=== PATIENT | female | born 1930 | race African-American/Black ===

== ENCOUNTER 2019-11-14 23:25 | Inpatient (IN) | payer MEDICARE, MEDICAID ==
[~2019-11-14] VITALS: Ht 157.5 cm; Wt 49.9 kg
[~2019-11-14 23:25] MED LIST: AMLO5TAB4 PO; ASCO-339 MT; CHOL100044 MT; FERR325T6 MT
[2019-11-14] MEDS ORDERED: SODIUM CHLORIDE 0.9% 1,000 ML IV ONE (23:50)
[2019-11-14] MEDS ORDERED: ONDANSETRON HCL 4MG/2ML INJ IV STA (23:50)
[2019-11-15 01:00] LABS: EOSINOPHILS % 0.4 % (0.0-5.0); HEMATOCRIT. 34.9 % (36.0-48.0); HEMOGLOBIN. 11.4 g/dL (12.0-16.0); LYMPHOCYTES % 15.4 % (20.0-50.0); MEAN CORPUSCULAR HEMOGLOBIN 26.5 pg (28.0-32.0); MEAN CORPUSCULAR VOLUME 81.4 fL (81.0-99.0); MEAN PLATELET VOLUME 8.9 fl (7.4-10.4); NEUTROPHILS % 76.2 % (40.0-76.0); PLATELET 213 x1000/uL (130-400); RED BLOOD CELL COUNT 4.29 mill/uL (4.2-5.4); RED CELL DISTRIBUTION WIDTH 14.5 % (11.6-14.6)
[2019-11-15 01:07] LABS: CHLORIDE 105 mEq/L (98-107)
[2019-11-15 01:09] LABS: CLARITY URINE CLOUDY (CLEAR); COLOR URINE YELLOW (YELLOW); KETONES URINE TRACE (NEGATIVE); LEUKOCYTE ESTERASE URINE NEGATIVE (NEGATIVE); NITRITE URINE NEGATIVE (NEGATIVE); OCCULT BLOOD URINE NEGATIVE (NEGATIVE); PH URINE 5.5 (4.5-8.0); PROTEIN URINE 2+ (NEGATIVE); SPECIFIC GRAVITY URINE 1.017 (1.005-1.030); UROBILINOGEN URINE 0.2 E.U./dL (0.2-1.0)
[2019-11-15] MEDS ORDERED: SITA100T11 PO (01:17)
[2019-11-15] MEDS ORDERED: FOLI-43 PO (01:17)
[2019-11-15] MEDS ORDERED: CETI10TA10 MT (01:17)
[2019-11-15] MEDS ORDERED: CHOL100034 PO (01:17)
[2019-11-15] MEDS ORDERED: DOCU-272 PO (01:17)
[2019-11-15] MEDS ORDERED: [UNRECOGNIZED DRUG - CODE] EP (01:17)
[2019-11-15] MEDS ORDERED: METF500S7 PO (01:17)
[2019-11-15] MEDS ORDERED: METO25TA6 PO (01:17)
[2019-11-15] MEDS ORDERED: CEPH-569 PO (01:17)
[2019-11-15 01:49] LABS: BG BASE EXCESS -2.1 mmol/L (-2.0-2.0); BG CARBOXYHEMOGLOBIN 0.3 % (0.5-1.5); BG DEOXYHEMOGLOBIN 5.6 % (0.0-5.0); BG FRACTION INSPIRED OXYGEN 21; BG HCO3 ACT 21.7 mmol/L (22.0-26.0); BG METHEMOGLOBIN 0.1 % (0.0-1.5); BG OXYGEN SATURATION 94.4 % (92.0-98.5); BG PCO2 33.9 mmHg (35.0-45.0); BG PH 7.424 (7.350-7.450); BG PO2 78.5 mmHg (75.0-100.0); BG SAMPLE SITE RIGHT RADIAL; BG TOTAL HEMOGLOBIN 11.4 g/dL (12.0-18.0); BG VENT MODE ROOM AIR
[2019-11-15 23:40] VITALS: BP 153/82
[2019-11-16] MEDS ORDERED: ACETAMINOPHEN 325MG TABLET PO PRN (02:00)
[2019-11-16] MEDS ORDERED: DEXTROSE 50% WATER 50ML SYRINGE IV PRN (02:00)
[2019-11-16] MEDS ORDERED: ONDANSETRON HCL 4MG/2ML INJ IV PRN (02:00)
[2019-11-16 04:24] VITALS: BP 160/88
[2019-11-16] MEDS: BLOOD SUGAR DIAGNOSTIC STRIP TEST SCH ×4 (06:31→21:00)
[2019-11-16] MEDS: INSULIN LISPRO 100 UNITS/ML SUBCUT SCH ×4 (07:40→22:07)
[2019-11-16 07:58] LABS: BASOPHILS % 0.8 % (0.0-2.0); EOSINOPHILS % 1.5 % (0.0-5.0); HEMATOCRIT. 34.4 % (36.0-48.0); HEMOGLOBIN. 11.5 g/dL (12.0-16.0); LYMPHOCYTES % 29.2 % (20.0-50.0); MEAN CORPUSCULAR HEMOGLOBIN 27.2 pg (28.0-32.0); MEAN CORPUSCULAR VOLUME 81.4 fL (81.0-99.0); MONOCYTES % 7.4 % (2.0-8.0); NEUTROPHILS % 61.1 % (40.0-76.0); RED BLOOD CELL COUNT 4.23 mill/uL (4.2-5.4); RED CELL DISTRIBUTION WIDTH 14.4 % (11.6-14.6)
[2019-11-16 08:00] VITALS: BP 164/82
[2019-11-16] MEDS: ENOXAPARIN 40MG/0.4ML SYR SUBCUT SCH (08:13)
[2019-11-16 08:30] LABS: CHLORIDE 111 mEq/L (98-107)
[2019-11-16 12:00] VITALS: BP 140/72
[2019-11-16] MEDS ORDERED: PNEUMOCOCCAL 23-VAL P-SAC VAC 0.5 ML IM ONE (12:00)
[2019-11-16] MEDS ORDERED: INFLUENZA VIRUS VACCINE(AFLURIA) 0.5ML SYR IM ONE (12:00)
[2019-11-16] MEDS: CEFTRIAXONE 1 G PREMIX 50 ML IV SCH (12:58)
[2019-11-16] MEDS ORDERED: MAGNESIUM OXIDE 400MG TABLET PO NR (14:15)
[2019-11-16] MEDS: SODIUM CHLORIDE 0.9% 1,000 ML IV SCH (15:51)
[2019-11-16 16:23] VITALS: BP 132/78
[2019-11-16] MEDS ORDERED: CLON-457 MT (18:27)
[2019-11-16] MEDS ORDERED: CETI10CA11 MT (18:27)
[2019-11-16] MEDS ORDERED: FERR-71 MT (18:27)
[2019-11-16] MEDS ORDERED: LINA145C MT (18:27)
[2019-11-16] MEDS ORDERED: CEPH500T MT (18:27)
[2019-11-16] MEDS ORDERED: AMLO5TAB88 MT (18:27)
[2019-11-16] MEDS ORDERED: METF500T MT (18:27)
[2019-11-16] MEDS ORDERED: SITA100T11 MT (18:27)
[2019-11-16] MEDS ORDERED: FOLI-43 MT (18:27)
[2019-11-16] MEDS ORDERED: CHOL400D16 PO (18:27)
[2019-11-16] MEDS ORDERED: ACET12.5 PO (18:27)
[2019-11-16] MEDS ORDERED: METO25TA6 MT (18:27)
[2019-11-16] MEDS ORDERED: DOCU-272 MT (18:27)
[2019-11-16] MEDS ORDERED: MEGE400O5 PO (18:27)
[2019-11-16] MEDS: VANCOMYCIN 1 G PREMIX 200 ML IV SCH (18:34)
[2019-11-16 20:03] LABS: T4 FREE 1.41 ng/dL (0.76-1.46)
[2019-11-16 20:18] VITALS: BP 114/75
[2019-11-16 20:31] LABS: FOLIC ACID (FOLATE) SERUM > 20.00 ng/mL (>5.38)
[2019-11-16 20:34] LABS: VITAMIN B12 SERUM 1522 pg/mL (211-911)
[2019-11-17 00:30] VITALS: BP 116/77
[2019-11-17 04:00] VITALS: BP 152/94
[2019-11-17] MEDS: BLOOD SUGAR DIAGNOSTIC STRIP TEST SCH ×4 (07:20→21:22)
[2019-11-17 08:00] VITALS: BP 132/85
[2019-11-17] MEDS: ENOXAPARIN 40MG/0.4ML SYR SUBCUT SCH (08:58)
[2019-11-17] MEDS: INSULIN LISPRO 100 UNITS/ML SUBCUT SCH ×4 (09:04→21:31)
[2019-11-17 12:00] VITALS: BP 145/90
[2019-11-17] MEDS: CEFTRIAXONE 1 G PREMIX 50 ML IV SCH (12:35)
[2019-11-17 16:00] VITALS: BP 140/75
[2019-11-17] MEDS: VANCOMYCIN 1 G PREMIX 200 ML IV SCH (17:53)
[2019-11-17] MEDS: SODIUM CHLORIDE 0.9% 1,000 ML IV SCH (18:05)
[2019-11-17 20:00] VITALS: BP 149/56
[2019-11-18 04:00] VITALS: BP 121/67
[2019-11-18] MEDS: BLOOD SUGAR DIAGNOSTIC STRIP TEST SCH ×4 (07:20→20:47)
[2019-11-18] MEDS: INSULIN LISPRO 100 UNITS/ML SUBCUT SCH ×4 (07:50→20:47)
[2019-11-18 08:00] VITALS: BP 134/73
[2019-11-18] MEDS: ENOXAPARIN 30MG/0.3ML SYR SUBCUT SCH (09:09)
[2019-11-18] MEDS: MULTIVITAMINS,THER W-MINERALS TABLET PO SCH (09:09)
[2019-11-18] MEDS: ZINC SULFATE 220 MG ( 50 ) CAPSULE PO SCH (09:11)
[2019-11-18 12:00] VITALS: BP 114/62
[2019-11-18] MEDS: CEFTRIAXONE 1 G PREMIX 50 ML IV SCH (12:26)
[2019-11-18] MEDS: SODIUM CHLORIDE 0.9% 1,000 ML IV SCH (14:27)
[2019-11-18 16:00] VITALS: BP 119/52
[2019-11-18] MEDS: VANCOMYCIN 1 G PREMIX 200 ML IV SCH (17:12)
[2019-11-18] MEDS: LOSARTAN POTASSIUM 25 MG TABLET PO SCH (18:30)
[2019-11-18 20:00] VITALS: BP 145/48
[2019-11-18] MEDS: CARVEDILOL 6.25 MG TABLET PO SCH (21:25)
[2019-11-19] VITALS: BP 126/45
[2019-11-19 04:00] VITALS: BP 159/57
[2019-11-19] MEDS: SODIUM CHLORIDE 0.9% 1,000 ML IV SCH ×2 (05:00→10:25)
[2019-11-19] MEDS: INSULIN LISPRO 100 UNITS/ML SUBCUT SCH ×4 (06:56→22:20)
[2019-11-19] MEDS: BLOOD SUGAR DIAGNOSTIC STRIP TEST SCH ×4 (06:56→21:00)
[2019-11-19 08:00] VITALS: BP 162/85
[2019-11-19] MEDS: CARVEDILOL 6.25 MG TABLET PO SCH ×2 (09:12→22:19)
[2019-11-19] MEDS: MULTIVITAMINS,THER W-MINERALS TABLET PO SCH (09:12)
[2019-11-19] MEDS: ZINC SULFATE 220 MG ( 50 ) CAPSULE PO SCH (09:12)
[2019-11-19] MEDS: ENOXAPARIN 30MG/0.3ML SYR SUBCUT SCH (09:13)
[2019-11-19] MEDS: LOSARTAN POTASSIUM 25 MG TABLET PO SCH (09:13)
[2019-11-19 12:00] VITALS: BP 159/80
[2019-11-19] MEDS: CEFTRIAXONE 1 G PREMIX 50 ML IV SCH (12:27)
[2019-11-19 16:00] VITALS: BP 160/81
[2019-11-19] MEDS: CLONIDINE 0.1MG TABLET PO PRN (18:42)
[2019-11-19 20:00] VITALS: BP 157/77
[2019-11-20] VITALS: BP 126/78
[2019-11-20] MEDS: SODIUM CHLORIDE 0.9% 1,000 ML IV SCH ×3 (00:35→18:08)
[2019-11-20 04:00] VITALS: BP 145/81
[2019-11-20] MEDS: BLOOD SUGAR DIAGNOSTIC STRIP TEST SCH ×4 (07:16→21:00)
[2019-11-20] MEDS: INSULIN LISPRO 100 UNITS/ML SUBCUT SCH ×4 (07:50→23:56)
[2019-11-20 08:00] VITALS: BP 148/93
[2019-11-20] MEDS: LOSARTAN POTASSIUM 50 MG TABLET PO SCH (08:25)
[2019-11-20] MEDS: ZINC SULFATE 220 MG ( 50 ) CAPSULE PO SCH (08:25)
[2019-11-20] MEDS: MULTIVITAMINS,THER W-MINERALS TABLET PO SCH (08:25)
[2019-11-20] MEDS: CARVEDILOL 6.25 MG TABLET PO SCH ×2 (08:26→23:49)
[2019-11-20] MEDS: ENOXAPARIN 30MG/0.3ML SYR SUBCUT SCH (08:27)
[2019-11-20 08:40] LABS: BASOPHILS % 0.5 % (0.0-2.0); EOSINOPHILS % 2.9 % (0.0-5.0); HEMOGLOBIN. 10.6 g/dL (12.0-16.0); LYMPHOCYTES % 26.1 % (20.0-50.0); MEAN CORPUSCULAR VOLUME 81.6 fL (81.0-99.0); MEAN PLATELET VOLUME 9.5 fl (7.4-10.4); MONOCYTES % 7.5 % (2.0-8.0); PLATELET 218 x1000/uL (130-400); RED BLOOD CELL COUNT 3.92 mill/uL (4.2-5.4); RED CELL DISTRIBUTION WIDTH 14.7 % (11.6-14.6)
[2019-11-20 08:46] LABS: CHLORIDE 112 mEq/L (98-107)
[2019-11-20] MEDS: CEFTRIAXONE 1 G PREMIX 50 ML IV SCH (11:56)
[2019-11-20 12:00] VITALS: BP 132/57
[2019-11-20 16:00] VITALS: BP 145/80
[2019-11-20 20:00] VITALS: BP 169/88
[2019-11-21] VITALS: BP 163/86
[2019-11-21 04:00] VITALS: BP 184/69
[2019-11-21] MEDS: CLONIDINE 0.1MG TABLET PO PRN ×2 (04:52→22:30)
[2019-11-21] MEDS: SODIUM CHLORIDE 0.9% 1,000 ML IV SCH ×2 (04:57→15:45)
[2019-11-21] MEDS: BLOOD SUGAR DIAGNOSTIC STRIP TEST SCH ×4 (07:20→21:00)
[2019-11-21] MEDS: INSULIN LISPRO 100 UNITS/ML SUBCUT SCH ×4 (07:50→22:32)
[2019-11-21 08:00] VITALS: BP 169/92
[2019-11-21] MEDS: MULTIVITAMINS,THER W-MINERALS TABLET PO SCH (08:46)
[2019-11-21] MEDS: ENOXAPARIN 30MG/0.3ML SYR SUBCUT SCH (08:46)
[2019-11-21] MEDS: CARVEDILOL 6.25 MG TABLET PO SCH ×2 (08:46→22:29)
[2019-11-21] MEDS: ZINC SULFATE 220 MG ( 50 ) CAPSULE PO SCH (08:46)
[2019-11-21] MEDS: LOSARTAN POTASSIUM 50 MG TABLET PO SCH (08:46)
[2019-11-21] MEDS: CEFTRIAXONE 1 G PREMIX 50 ML IV SCH (11:01)
[2019-11-21 12:00] VITALS: BP 154/77
[2019-11-21 16:00] VITALS: BP 181/92
[2019-11-22] VITALS: BP 152/79
[2019-11-22 04:00] VITALS: BP 143/80
[2019-11-22] MEDS: SODIUM CHLORIDE 0.9% 1,000 ML IV SCH ×2 (05:20→18:25)
[2019-11-22] MEDS: BLOOD SUGAR DIAGNOSTIC STRIP TEST SCH ×3 (05:45→17:34)
[2019-11-22] MEDS: INSULIN LISPRO 100 UNITS/ML SUBCUT SCH ×3 (07:50→17:35)
[2019-11-22 08:00] VITALS: BP 163/87
[2019-11-22] MEDS: CARVEDILOL 6.25 MG TABLET PO SCH ×2 (08:38→20:44)
[2019-11-22] MEDS: LOSARTAN POTASSIUM 50 MG TABLET PO SCH (08:38)
[2019-11-22] MEDS: ENOXAPARIN 30MG/0.3ML SYR SUBCUT SCH (08:38)
[2019-11-22] MEDS: CLONIDINE 0.1MG TABLET PO PRN ×2 (08:38→20:43)
[2019-11-22] MEDS: ZINC SULFATE 220 MG ( 50 ) CAPSULE PO SCH (08:38)
[2019-11-22] MEDS: MULTIVITAMINS,THER W-MINERALS TABLET PO SCH (08:38)
[2019-11-22] MEDS: CEFTRIAXONE 1 G PREMIX 50 ML IV SCH (11:50)
[2019-11-22 12:00] VITALS: BP 138/74
[2019-11-22] MEDS ORDERED: COR6 PO (14:52)
[2019-11-22] MEDS ORDERED: LOSA50TA3 PO (14:52)
[2019-11-22 15:16] VITALS: BP 138/74
[2019-11-22 16:00] VITALS: BP 132/87
== END 2019-11-22 20:56 | disposition home or self-care (01) | DRG 52 ==
LOC: ER 23:25 → 6WST 11-15 03:00 → EDBEDREQDT 11-15 03:09 → EDBEDREQ 11-15 03:09 → EDBEDREQTM 11-15 03:09 → ENRESERV 11-15 22:48
PROVIDERS: ADMIT Internal Medicine; ATTEND Internal Medicine
DX: G92 Toxic encephalopathy (principal); E44.0 Moderate protein-calorie malnutrition; I27.20 Pulmonary hypertension, unspecified; I50.9 Heart failure, unspecified; I11.0 Hypertensive heart disease with heart failure; E83.42 Hypomagnesemia; I42.9 Cardiomyopathy, unspecified; G82.50 Quadriplegia, unspecified; R13.10 Dysphagia, unspecified; F03.90 Unspecified dementia, unspecified severity, without behavioral disturbance, psychotic disturbance, mood disturbance, and anxiety; E11.9 Type 2 diabetes mellitus without complications; D64.9 Anemia, unspecified; L89.90 Pressure ulcer of unspecified site, unspecified stage; M48.061 Spinal stenosis, lumbar region without neurogenic claudication; N39.0 Urinary tract infection, site not specified; I50.42 Chronic combined systolic (congestive) and diastolic (congestive) heart failure; R47.01 Aphasia; R00.0 Tachycardia, unspecified; Z86.73 Personal history of transient ischemic attack (TIA), and cerebral infarction without residual deficits; Z79.899 Other long term (current) drug therapy
CPT/HCPCS: 36415; 36600; 71045; 80048; 80053; 80202; 81003; 82140; 82375; 82607; 82746; 82805; 82962; 83036; 83605; 83735; 83880; 84100; 84145; 84439; 84443; 84481; 84484; 85025; 90686; 90732; 92610; 93005; 93306; 96361; 96374; 97162; 97166; 97535; 99285; C1893; J0696; J1650; J1815; J2405; J3370; J7030; J7040; A4315

== ENCOUNTER 2020-01-11 00:38 | Inpatient (IN) | payer MEDICARE, MEDICAID ==
[~2020-01-11] VITALS: Ht 162.6 cm; Wt 53.5 kg
[~2020-01-11 00:38] MED LIST changes: +ACET12.5 PO; -AMLO5TAB4 PO; -ASCO-339 MT; -CHOL100044 MT; +CHOL400D16 PO; +CLON-457 MT; +COR6 PO; +DOCU-272 MT; +FERR-71 MT; -FERR325T6 MT; +FOLI-43 MT; +LINA145C MT; +LOSA50TA3 PO; +METF500T MT; +SITA100T11 MT
[2020-01-11] MEDS ORDERED: SODIUM CHLORIDE 0.9% 1,000 ML IV ONE (02:47)
[2020-01-11 03:04] LABS: BASOPHILS % 0.8 % (0.0-2.0); EOSINOPHILS % 2.5 % (0.0-5.0); HEMATOCRIT. 31.6 % (36.0-48.0); HEMOGLOBIN. 10.5 g/dL (12.0-16.0); LYMPHOCYTES % 32.4 % (20.0-50.0); MEAN CORPUSCULAR HEMOGLOBIN 26.8 pg (28.0-32.0); MEAN CORPUSCULAR VOLUME 80.8 fL (81.0-99.0); MEAN PLATELET VOLUME 9.8 fl (7.4-10.4); MONOCYTES % 6.8 % (2.0-8.0); NEUTROPHILS % 57.5 % (40.0-76.0); PLATELET 145 x1000/uL (130-400); RED BLOOD CELL COUNT 3.91 mill/uL (4.2-5.4); RED CELL DISTRIBUTION WIDTH 14.8 % (11.6-14.6)
[2020-01-11 03:08] LABS: CHLORIDE 114 mEq/L (98-107)
[2020-01-11 03:12] LABS: ETHANOL BLOOD < 10 mg/dL
[2020-01-11 04:15] LABS: CLARITY URINE CLOUDY (CLEAR); COLOR URINE YELLOW (YELLOW); KETONES URINE NEGATIVE (NEGATIVE); LEUKOCYTE ESTERASE URINE 3+ (NEGATIVE); NITRITE URINE NEGATIVE (NEGATIVE); OCCULT BLOOD URINE 1+ (NEGATIVE); PROTEIN URINE NEGATIVE (NEGATIVE); SPECIFIC GRAVITY URINE 1.012 (1.005-1.030)
[2020-01-11 04:23] LABS: *AMPHETAMINES SCREEN URINE NEGATIVE (NEGATIVE); *BARBITURATES SCREEN URINE NEGATIVE (NEGATIVE); *BENZODIAZEPINES SCREEN URINE NEGATIVE (NEGATIVE); *COCAINE SCREEN URINE NEGATIVE (NEGATIVE)
[2020-01-11 04:25] LABS: CANNABINOID URINE SCREEN NEGATIVE (NEGATIVE); METHADONE URINE SCREEN NEGATIVE (NEGATIVE); OPIATES URINE SCREEN PRESUMTIVE POSITIVE (NEGATIVE); PHENCYCLIDINE URINE SCREEN NEGATIVE (NEGATIVE)
[2020-01-11] MEDS ORDERED: CEFTRIAXONE 1 G PREMIX 50 ML IV SCH (12:30)
[2020-01-11] MEDS ORDERED: ONDANSETRON HCL 4MG/2ML INJ IV PRN (12:30)
[2020-01-11] MEDS ORDERED: DOCUSATE SODIUM 100MG CAPSULE PO PRN (12:30)
[2020-01-11] MEDS ORDERED: IPRATROPIUM/ALBUTEROL 0.5-3(2.5)MG/3ML NEB NEB PRN (12:30)
[2020-01-11] MEDS ORDERED: ENOXAPARIN 40MG/0.4ML SYR SUBCUT SCH (12:30)
[2020-01-11] MEDS: ENOXAPARIN 60MG/0.6ML SYR SUBCUT SCH (14:54)
[2020-01-11] MEDS: CEFTRIAXONE 1 G PREMIX 50 ML IV SCH (15:47)
[2020-01-11] MEDS ORDERED: MIDODRINE HCL 5MG TABLET PO PRN (16:15)
[2020-01-11] MEDS ORDERED: DEXT 5%/0.45% NACL 1000ML 1,000 ML IV NR (16:30)
[2020-01-11 17:15] VITALS: BP 133/58
[2020-01-11 19:06] VITALS: BP 133/58
[2020-01-11 20:00] VITALS: BP 156/87
[2020-01-11] MEDS ORDERED: DEXTROSE 50% WATER 50ML SYRINGE IV PRN (20:00)
[2020-01-11] MEDS: CARVEDILOL 6.25 MG TABLET PO SCH (20:51)
[2020-01-11] MEDS: FAMOTIDINE 20MG/2ML VIAL IV SCH (20:51)
[2020-01-11] MEDS: BLOOD SUGAR DIAGNOSTIC STRIP TEST SCH (20:53)
[2020-01-11] MEDS: INSULIN LISPRO 100 UNITS/ML SUBCUT SCH (20:53)
[2020-01-12] VITALS: BP 129/84
[2020-01-12] MEDS ORDERED: AMLO5TAB88 MT (03:50)
[2020-01-12] MEDS ORDERED: METO25TA6 PO (03:50)
[2020-01-12 04:00] VITALS: BP 152/69
[2020-01-12] MEDS: BLOOD SUGAR DIAGNOSTIC STRIP TEST SCH ×4 (07:20→21:50)
[2020-01-12] MEDS: INSULIN LISPRO 100 UNITS/ML SUBCUT SCH ×4 (07:50→21:00)
[2020-01-12 07:57] LABS: CHLORIDE 111 mEq/L (98-107)
[2020-01-12 08:00] VITALS: BP 146/87
[2020-01-12] MEDS: FOLIC ACID 1MG TABLET PO SCH (09:00)
[2020-01-12] MEDS: CARVEDILOL 6.25 MG TABLET PO SCH ×2 (09:00→21:49)
[2020-01-12] MEDS: LOSARTAN POTASSIUM 50 MG TABLET PO SCH (09:00)
[2020-01-12] MEDS: FERROUS SULFATE 325MG TABLET PO SCH (09:00)
[2020-01-12] MEDS: DOCUSATE SODIUM 100MG CAPSULE PO SCH (09:00)
[2020-01-12] MEDS ORDERED: POTASSIUM CHLORIDE INJ 40 MEQ in DEXT 5% WATER 250 ML IV SCH (11:00)
[2020-01-12] MEDS: ENOXAPARIN 60MG/0.6ML SYR SUBCUT SCH (11:38)
[2020-01-12 11:48] LABS: BASOPHILS % 0.6 % (0.0-2.0); EOSINOPHILS % 1.3 % (0.0-5.0); HEMATOCRIT. 41.6 % (36.0-48.0); HEMOGLOBIN. 13.9 g/dL (12.0-16.0); LYMPHOCYTES % 31.5 % (20.0-50.0); MEAN CORPUSCULAR HEMOGLOBIN 27.1 pg (28.0-32.0); MEAN CORPUSCULAR VOLUME 81.4 fL (81.0-99.0); MEAN PLATELET VOLUME 10.1 fl (7.4-10.4); MONOCYTES % 4.6 % (2.0-8.0); PLATELET 137 x1000/uL (130-400); RED BLOOD CELL COUNT 5.12 mill/uL (4.2-5.4); RED CELL DISTRIBUTION WIDTH 14.4 % (11.6-14.6)
[2020-01-12 11:53] LABS: PROTHROMBIN TIME 10.7 sec (9.6-11.0)
[2020-01-12 12:00] VITALS: BP 164/78
[2020-01-12 16:00] VITALS: BP 134/79
[2020-01-12] MEDS: CEFTRIAXONE 1 G PREMIX 50 ML IV SCH (17:02)
[2020-01-12] MEDS: FAMOTIDINE 20MG/2ML VIAL IV SCH (17:02)
[2020-01-12 18:14] LABS: T4 FREE 1.32 ng/dL (0.76-1.46)
[2020-01-12 18:45] LABS: VITAMIN B12 SERUM 931 pg/mL (211-911)
[2020-01-12 19:06] LABS: FOLIC ACID (FOLATE) SERUM >20 ng/mL ng/mL (>5.38)
[2020-01-12 20:00] VITALS: BP 145/77
[2020-01-13] VITALS: BP 128/73
[2020-01-13 04:00] VITALS: BP 157/93
[2020-01-13] MEDS: BLOOD SUGAR DIAGNOSTIC STRIP TEST SCH ×4 (06:35→21:47)
[2020-01-13] MEDS: INSULIN LISPRO 100 UNITS/ML SUBCUT SCH ×4 (06:35→21:00)
[2020-01-13 08:00] VITALS: BP 154/76
[2020-01-13] MEDS: DOCUSATE SODIUM 100MG CAPSULE PO SCH (09:06)
[2020-01-13] MEDS: LOSARTAN POTASSIUM 50 MG TABLET PO SCH (09:06)
[2020-01-13] MEDS: ENOXAPARIN 60MG/0.6ML SYR SUBCUT SCH (09:06)
[2020-01-13] MEDS: CARVEDILOL 6.25 MG TABLET PO SCH ×2 (09:07→21:24)
[2020-01-13] MEDS: FOLIC ACID 1MG TABLET PO SCH (09:07)
[2020-01-13] MEDS: FERROUS SULFATE 325MG TABLET PO SCH (09:07)
[2020-01-13 09:59] LABS: BASOPHILS % 0.5 % (0.0-2.0); EOSINOPHILS % 1.4 % (0.0-5.0); HEMATOCRIT. 35.9 % (36.0-48.0); LYMPHOCYTES % 27.7 % (20.0-50.0); MEAN CORPUSCULAR HEMOGLOBIN 26.8 pg (28.0-32.0); MEAN CORPUSCULAR VOLUME 80.4 fL (81.0-99.0); MEAN PLATELET VOLUME 9.9 fl (7.4-10.4); MONOCYTES % 6.6 % (2.0-8.0); NEUTROPHILS % 63.8 % (40.0-76.0); PLATELET 167 x1000/uL (130-400); RED BLOOD CELL COUNT 4.47 mill/uL (4.2-5.4); RED CELL DISTRIBUTION WIDTH 14.5 % (11.6-14.6)
[2020-01-13 10:35] LABS: CHLORIDE 112 mEq/L (98-107)
[2020-01-13 12:00] VITALS: BP 148/81
[2020-01-13 15:58] VITALS: BP 148/87
[2020-01-13] MEDS: FAMOTIDINE 20MG/2ML VIAL IV SCH (16:22)
[2020-01-13] MEDS: CEFTRIAXONE 1 G PREMIX 50 ML IV SCH (16:22)
[2020-01-13] MEDS: SODIUM CHLORIDE 0.45% 1,000 ML IV SCH (18:21)
[2020-01-13 20:00] VITALS: BP 150/90
[2020-01-14] VITALS: BP 139/84
[2020-01-14] MEDS: CEFEPIME 1,000 MG in DEXTROSE 5% WATER 50 ML IV SCH ×2 (01:00→12:55)
[2020-01-14 04:00] VITALS: BP 159/97
[2020-01-14] MEDS: SODIUM CHLORIDE 0.45% 1,000 ML IV SCH (06:38)
[2020-01-14] MEDS: BLOOD SUGAR DIAGNOSTIC STRIP TEST SCH ×4 (06:38→22:12)
[2020-01-14] MEDS: INSULIN LISPRO 100 UNITS/ML SUBCUT SCH ×4 (07:50→22:18)
[2020-01-14 07:53] VITALS: BP 144/92
[2020-01-14] MEDS: DOCUSATE SODIUM 100MG CAPSULE PO SCH (09:00)
[2020-01-14] MEDS: FERROUS SULFATE 325MG TABLET PO SCH (09:46)
[2020-01-14] MEDS: FOLIC ACID 1MG TABLET PO SCH (09:46)
[2020-01-14] MEDS: ENOXAPARIN 60MG/0.6ML SYR SUBCUT SCH (09:47)
[2020-01-14] MEDS: CARVEDILOL 6.25 MG TABLET PO SCH ×2 (09:47→22:15)
[2020-01-14] MEDS: LOSARTAN POTASSIUM 25 MG TABLET PO SCH (10:01)
[2020-01-14 12:11] VITALS: BP 152/89
[2020-01-14 16:30] VITALS: BP 141/90
[2020-01-14] MEDS: FAMOTIDINE 20MG TABLET PO SCH (17:03)
[2020-01-14 20:00] VITALS: BP 147/84
[2020-01-14 22:02] LABS: CHLORIDE 108 mEq/L (98-107)
[2020-01-15] VITALS: BP 157/90
[2020-01-15] MEDS: CEFEPIME 1,000 MG in DEXTROSE 5% WATER 50 ML IV SCH ×2 (00:54→12:49)
[2020-01-15 04:00] VITALS: BP 146/84
[2020-01-15] MEDS: INSULIN LISPRO 100 UNITS/ML SUBCUT SCH ×4 (07:16→22:17)
[2020-01-15] MEDS: BLOOD SUGAR DIAGNOSTIC STRIP TEST SCH ×4 (07:20→21:00)
[2020-01-15 08:00] VITALS: BP 131/74
[2020-01-15 08:09] LABS: CHLORIDE 110 mEq/L (98-107)
[2020-01-15] MEDS: ENOXAPARIN 60MG/0.6ML SYR SUBCUT SCH (10:15)
[2020-01-15] MEDS: LOSARTAN POTASSIUM 25 MG TABLET PO SCH (10:16)
[2020-01-15] MEDS: DOCUSATE SODIUM 100MG CAPSULE PO SCH (10:17)
[2020-01-15] MEDS: CARVEDILOL 6.25 MG TABLET PO SCH ×2 (10:17→22:16)
[2020-01-15] MEDS: FOLIC ACID 1MG TABLET PO SCH (10:18)
[2020-01-15] MEDS: FERROUS SULFATE 325MG TABLET PO SCH (10:18)
[2020-01-15 12:00] VITALS: BP 131/84
[2020-01-15] MEDS ORDERED: MAGNESIUM 2 G PREMIX 50 ML IV SCH (13:00)
[2020-01-15 16:00] VITALS: BP 139/85
[2020-01-15] MEDS: FAMOTIDINE 20MG TABLET PO SCH (18:53)
[2020-01-15 20:00] VITALS: BP 157/98
[2020-01-16] VITALS: BP 129/69
[2020-01-16] MEDS: CEFEPIME 1,000 MG in DEXTROSE 5% WATER 50 ML IV SCH ×2 (01:13→11:40)
[2020-01-16 04:00] VITALS: BP 150/88
[2020-01-16] MEDS: BLOOD SUGAR DIAGNOSTIC STRIP TEST SCH ×4 (06:32→21:00)
[2020-01-16] MEDS: INSULIN LISPRO 100 UNITS/ML SUBCUT SCH ×4 (07:50→21:00)
[2020-01-16 08:09] VITALS: BP 156/95
[2020-01-16] MEDS: FOLIC ACID 1MG TABLET PO SCH (08:35)
[2020-01-16] MEDS: LOSARTAN POTASSIUM 25 MG TABLET PO SCH (08:37)
[2020-01-16] MEDS: DOCUSATE SODIUM 100MG CAPSULE PO SCH (08:37)
[2020-01-16] MEDS: CARVEDILOL 6.25 MG TABLET PO SCH ×2 (08:37→22:11)
[2020-01-16] MEDS: ENOXAPARIN 60MG/0.6ML SYR SUBCUT SCH (08:37)
[2020-01-16] MEDS: FERROUS SULFATE 325MG TABLET PO SCH (08:37)
[2020-01-16 12:00] VITALS: BP 159/76
[2020-01-16 16:10] VITALS: BP 150/70
[2020-01-16] MEDS: FAMOTIDINE 20MG TABLET PO SCH (17:12)
[2020-01-16 20:00] VITALS: BP 146/79
[2020-01-17] VITALS: BP 139/80
[2020-01-17] MEDS: CEFEPIME 1,000 MG in DEXTROSE 5% WATER 50 ML IV SCH ×2 (00:14→11:22)
[2020-01-17 04:00] VITALS: BP 143/85
[2020-01-17 06:59] LABS: CHLORIDE 110 mEq/L (98-107)
[2020-01-17 06:59] LABS: BASOPHILS % 0.3 % (0.0-2.0); HEMATOCRIT. 33.3 % (36.0-48.0); HEMOGLOBIN. 11.1 g/dL (12.0-16.0); LYMPHOCYTES % 30.1 % (20.0-50.0); MEAN CORPUSCULAR HEMOGLOBIN 26.8 pg (28.0-32.0); MEAN CORPUSCULAR VOLUME 80.3 fL (81.0-99.0); MEAN PLATELET VOLUME 10.3 fl (7.4-10.4); MONOCYTES % 7.6 % (2.0-8.0); PLATELET 156 x1000/uL (130-400); RED BLOOD CELL COUNT 4.14 mill/uL (4.2-5.4); RED CELL DISTRIBUTION WIDTH 14.6 % (11.6-14.6)
[2020-01-17] MEDS: BLOOD SUGAR DIAGNOSTIC STRIP TEST SCH ×4 (07:10→21:35)
[2020-01-17] MEDS: INSULIN LISPRO 100 UNITS/ML SUBCUT SCH ×4 (07:45→21:43)
[2020-01-17 08:00] VITALS: BP 155/85
[2020-01-17] MEDS: LOSARTAN POTASSIUM 25 MG TABLET PO SCH (08:48)
[2020-01-17] MEDS: CARVEDILOL 6.25 MG TABLET PO SCH ×2 (08:48→21:35)
[2020-01-17] MEDS: ENOXAPARIN 60MG/0.6ML SYR SUBCUT SCH (08:48)
[2020-01-17] MEDS: FOLIC ACID 1MG TABLET PO SCH (08:48)
[2020-01-17] MEDS: FERROUS SULFATE 325MG TABLET PO SCH (08:48)
[2020-01-17] MEDS: DOCUSATE SODIUM 100MG CAPSULE PO SCH (09:15)
[2020-01-17] MEDS: CLOPIDOGREL 75MG TABLET PO SCH (11:22)
[2020-01-17 12:00] VITALS: BP 125/65
[2020-01-17] MEDS: PREDNISONE 10MG TABLET PO SCH ×2 (14:45→16:24)
[2020-01-17 16:00] VITALS: BP 149/71
[2020-01-17] MEDS: FAMOTIDINE 20MG TABLET PO SCH (16:24)
[2020-01-17 20:00] VITALS: BP 137/84
[2020-01-17] MEDS ORDERED: POTASSIUM CHLORIDE INJ 40 MEQ in DEXT 5% WATER 250 ML IV NR (23:30)
[2020-01-18] VITALS: BP 131/77
[2020-01-18] MEDS: CEFEPIME 1,000 MG in DEXTROSE 5% WATER 50 ML IV SCH ×2 (00:10→12:56)
[2020-01-18 04:00] VITALS: BP 136/84
[2020-01-18] MEDS: BLOOD SUGAR DIAGNOSTIC STRIP TEST SCH ×4 (06:24→21:39)
[2020-01-18 08:00] VITALS: BP 165/88
[2020-01-18] MEDS: INSULIN LISPRO 100 UNITS/ML SUBCUT SCH ×4 (08:25→21:40)
[2020-01-18] MEDS: PREDNISONE 10MG TABLET PO SCH ×2 (09:25→17:20)
[2020-01-18] MEDS: ENOXAPARIN 60MG/0.6ML SYR SUBCUT SCH (09:25)
[2020-01-18] MEDS: FOLIC ACID 1MG TABLET PO SCH (09:25)
[2020-01-18] MEDS: CLOPIDOGREL 75MG TABLET PO SCH (09:25)
[2020-01-18] MEDS: FERROUS SULFATE 325MG TABLET PO SCH (09:25)
[2020-01-18] MEDS: LOSARTAN POTASSIUM 25 MG TABLET PO SCH (09:32)
[2020-01-18] MEDS: CARVEDILOL 6.25 MG TABLET PO SCH ×2 (09:33→21:39)
[2020-01-18] MEDS: DOCUSATE SODIUM 100MG CAPSULE PO SCH (09:33)
[2020-01-18 12:02] VITALS: BP 133/65
[2020-01-18] MEDS: ACETAMINOPHEN 325MG TABLET PO PRN (12:57)
[2020-01-18 16:10] VITALS: BP 144/75
[2020-01-18] MEDS: FAMOTIDINE 20MG TABLET PO SCH (17:20)
[2020-01-18 20:00] VITALS: BP 133/77
[2020-01-19] VITALS: BP 137/83
[2020-01-19] MEDS: CEFEPIME 1,000 MG in DEXTROSE 5% WATER 50 ML IV SCH ×2 (00:17→12:10)
[2020-01-19 04:00] VITALS: BP 171/93
[2020-01-19] MEDS: BLOOD SUGAR DIAGNOSTIC STRIP TEST SCH ×4 (06:25→21:41)
[2020-01-19] MEDS: ACETAMINOPHEN 325MG TABLET PO PRN (06:26)
[2020-01-19] MEDS: INSULIN LISPRO 100 UNITS/ML SUBCUT SCH ×4 (07:50→21:00)
[2020-01-19 08:00] VITALS: BP 149/77
[2020-01-19] MEDS: DOCUSATE SODIUM 100MG CAPSULE PO SCH (08:35)
[2020-01-19] MEDS: PREDNISONE 10MG TABLET PO SCH ×2 (08:35→17:00)
[2020-01-19] MEDS: FERROUS SULFATE 325MG TABLET PO SCH (08:35)
[2020-01-19] MEDS: CARVEDILOL 6.25 MG TABLET PO SCH ×2 (08:35→21:00)
[2020-01-19] MEDS: LOSARTAN POTASSIUM 100 MG TABLET PO SCH (08:39)
[2020-01-19] MEDS: CLOPIDOGREL 75MG TABLET PO SCH (08:39)
[2020-01-19] MEDS: FOLIC ACID 1MG TABLET PO SCH (08:39)
[2020-01-19] MEDS: ENOXAPARIN 60MG/0.6ML SYR SUBCUT SCH (08:40)
[2020-01-19 12:00] VITALS: BP 158/89
[2020-01-19] MEDS: AMLODIPINE 10MG TABLET PO SCH (15:00)
[2020-01-19 16:00] VITALS: BP 158/91
[2020-01-19] MEDS: FAMOTIDINE 20MG TABLET PO SCH (17:00)
[2020-01-19 20:00] VITALS: BP 150/83
[2020-01-20] VITALS: BP 149/82
[2020-01-20] MEDS: CEFEPIME 1,000 MG in DEXTROSE 5% WATER 50 ML IV SCH ×2 (00:53→12:12)
[2020-01-20 01:26] LABS: CHLORIDE 112 mEq/L (98-107)
[2020-01-20 04:00] VITALS: BP 130/76
[2020-01-20 07:21] LABS: BASOPHILS % 0.6 % (0.0-2.0); EOSINOPHILS % 2.6 % (0.0-5.0); HEMATOCRIT. 31.4 % (36.0-48.0); HEMOGLOBIN. 10.6 g/dL (12.0-16.0); LYMPHOCYTES % 33.4 % (20.0-50.0); MEAN CORPUSCULAR VOLUME 80.2 fL (81.0-99.0); MEAN PLATELET VOLUME 9.9 fl (7.4-10.4); MONOCYTES % 10.9 % (2.0-8.0); NEUTROPHILS % 52.5 % (40.0-76.0); PLATELET 192 x1000/uL (130-400); RED BLOOD CELL COUNT 3.91 mill/uL (4.2-5.4); RED CELL DISTRIBUTION WIDTH 14.7 % (11.6-14.6)
[2020-01-20] MEDS: INSULIN LISPRO 100 UNITS/ML SUBCUT SCH ×4 (07:45→23:40)
[2020-01-20] MEDS: BLOOD SUGAR DIAGNOSTIC STRIP TEST SCH ×4 (07:45→21:00)
[2020-01-20 07:50] LABS: CHLORIDE 108 mEq/L (98-107)
[2020-01-20 08:00] VITALS: BP 166/96
[2020-01-20] MEDS: AMLODIPINE 10MG TABLET PO SCH (09:00)
[2020-01-20] MEDS: FOLIC ACID 1MG TABLET PO SCH (09:00)
[2020-01-20] MEDS: FERROUS SULFATE 325MG TABLET PO SCH (09:00)
[2020-01-20] MEDS: CLOPIDOGREL 75MG TABLET PO SCH (09:00)
[2020-01-20] MEDS: CARVEDILOL 6.25 MG TABLET PO SCH ×2 (09:00→23:38)
[2020-01-20] MEDS: PREDNISONE 10MG TABLET PO SCH ×2 (09:00→17:44)
[2020-01-20] MEDS: DOCUSATE SODIUM 100MG CAPSULE PO SCH (09:00)
[2020-01-20] MEDS: LOSARTAN POTASSIUM 100 MG TABLET PO SCH (09:00)
[2020-01-20] MEDS ORDERED: APIXABAN 5 MG TABLET PO SCH (09:00)
[2020-01-20] MEDS: ENOXAPARIN 60MG/0.6ML SYR SUBCUT SCH (09:47)
[2020-01-20 12:00] VITALS: BP 154/85
[2020-01-20 16:00] VITALS: BP 112/73
[2020-01-20] MEDS: FAMOTIDINE 20MG TABLET PO SCH (17:44)
[2020-01-20 20:06] VITALS: BP 116/65
[2020-01-21] VITALS: BP 128/60
[2020-01-21] MEDS: CEFEPIME 1,000 MG in DEXTROSE 5% WATER 50 ML IV SCH ×2 (03:25→12:37)
[2020-01-21 04:00] VITALS: BP 154/73
[2020-01-21] MEDS: INSULIN LISPRO 100 UNITS/ML SUBCUT SCH ×4 (07:50→22:28)
[2020-01-21] MEDS: BLOOD SUGAR DIAGNOSTIC STRIP TEST SCH ×4 (07:59→21:00)
[2020-01-21 08:00] VITALS: BP 170/96
[2020-01-21] MEDS: FOLIC ACID 1MG TABLET PO SCH (09:14)
[2020-01-21] MEDS: LOSARTAN POTASSIUM 100 MG TABLET PO SCH (09:14)
[2020-01-21] MEDS: PREDNISONE 10MG TABLET PO SCH ×2 (09:14→18:25)
[2020-01-21] MEDS: FERROUS SULFATE 325MG TABLET PO SCH (09:14)
[2020-01-21] MEDS: ENOXAPARIN 60MG/0.6ML SYR SUBCUT SCH (09:14)
[2020-01-21] MEDS: DOCUSATE SODIUM 100MG CAPSULE PO SCH (09:14)
[2020-01-21] MEDS: AMLODIPINE 10MG TABLET PO SCH (09:14)
[2020-01-21] MEDS: CARVEDILOL 6.25 MG TABLET PO SCH ×2 (09:14→21:58)
[2020-01-21] MEDS: CLOPIDOGREL 75MG TABLET PO SCH (09:14)
[2020-01-21 12:00] VITALS: BP 123/63
[2020-01-21 16:00] VITALS: BP 123/70
[2020-01-21] MEDS: FAMOTIDINE 20MG TABLET PO SCH (18:25)
[2020-01-21 20:00] VITALS: BP 133/74
[2020-01-22 00:01] VITALS: BP 128/60
[2020-01-22 04:00] VITALS: BP 135/69
[2020-01-22] MEDS: INSULIN LISPRO 100 UNITS/ML SUBCUT SCH ×3 (07:50→17:31)
[2020-01-22] MEDS: BLOOD SUGAR DIAGNOSTIC STRIP TEST SCH ×3 (08:08→17:02)
[2020-01-22 08:39] VITALS: BP 161/91
[2020-01-22] MEDS: LOSARTAN POTASSIUM 100 MG TABLET PO SCH (09:22)
[2020-01-22] MEDS: CLOPIDOGREL 75MG TABLET PO SCH (09:22)
[2020-01-22] MEDS: ENOXAPARIN 60MG/0.6ML SYR SUBCUT SCH (09:22)
[2020-01-22] MEDS: FOLIC ACID 1MG TABLET PO SCH (09:22)
[2020-01-22] MEDS: FERROUS SULFATE 325MG TABLET PO SCH (09:22)
[2020-01-22] MEDS: AMLODIPINE 10MG TABLET PO SCH (09:23)
[2020-01-22] MEDS: PREDNISONE 10MG TABLET PO SCH (09:23)
[2020-01-22] MEDS: CARVEDILOL 6.25 MG TABLET PO SCH (09:23)
[2020-01-22] MEDS: DOCUSATE SODIUM 100MG CAPSULE PO SCH (09:23)
[2020-01-22 12:07] VITALS: BP 151/79
[2020-01-22 16:33] VITALS: BP 143/77
[2020-01-22] MEDS: FAMOTIDINE 20MG TABLET PO SCH (17:31)
[2020-01-22 18:41] VITALS: BP 143/77
== END 2020-01-22 22:07 | disposition home health service (06) | DRG 45 ==
LOC: ER 00:38 → 6WST 05:16 → ENRESERV 16:17
PROVIDERS: ADMIT Internal Medicine; ATTEND Internal Medicine
DX: I63.9 Cerebral infarction, unspecified (principal); E43 Unspecified severe protein-calorie malnutrition; G92 Toxic encephalopathy; G82.50 Quadriplegia, unspecified; I82.411 Acute embolism and thrombosis of right femoral vein; E87.0 Hyperosmolality and hypernatremia; R13.10 Dysphagia, unspecified; Q04.0 Congenital malformations of corpus callosum; E46 Unspecified protein-calorie malnutrition; I27.20 Pulmonary hypertension, unspecified; E83.42 Hypomagnesemia; G93.89 Other specified disorders of brain; I82.432 Acute embolism and thrombosis of left popliteal vein; G95.9 Disease of spinal cord, unspecified; E11.9 Type 2 diabetes mellitus without complications; B96.5 Pseudomonas (aeruginosa) (mallei) (pseudomallei) as the cause of diseases classified elsewhere; D64.9 Anemia, unspecified; I50.42 Chronic combined systolic (congestive) and diastolic (congestive) heart failure; I11.0 Hypertensive heart disease with heart failure; F03.90 Unspecified dementia, unspecified severity, without behavioral disturbance, psychotic disturbance, mood disturbance, and anxiety; I69.351 Hemiplegia and hemiparesis following cerebral infarction affecting right dominant side; N39.0 Urinary tract infection, site not specified; E87.6 Hypokalemia; G31.9 Degenerative disease of nervous system, unspecified; H70.91 Unspecified mastoiditis, right ear; I82.511 Chronic embolism and thrombosis of right femoral vein; M48.00 Spinal stenosis, site unspecified; R47.01 Aphasia; Z68.20 Body mass index [BMI] 20.0-20.9, adult; Z79.899 Other long term (current) drug therapy
CPT/HCPCS: 36415; 70551; 71045; 72141; 73120; 80048; 80053; 80305; 80320; 81003; 82140; 82607; 82746; 82962; 83036; 83721; 83735; 84132; 84439; 84443; 84481; 85025; 87077; 87186; 92610; 93005; 93306; 93880; 93970; 97110; 97162; 97166; 97530; 99285; J0692; J0696; J1650; J1815; J3475; J3480; J3490; J7030; J7060; J7512; G0480

== ENCOUNTER 2020-02-29 11:32 | Inpatient (IN) | payer MEDICARE, MEDICAID ==
[~2020-02-29] VITALS: Ht 157.5 cm; Wt 62.1 kg
[~2020-02-29 11:32] MED LIST changes: +AMLO5TAB88 MT; +METO25TA6 PO
[2020-02-29] MEDS ORDERED: VANCOMYCIN 1 G PREMIX 200 ML IV SCH (13:30)
[2020-02-29] MEDS ORDERED: SODIUM CHLORIDE 0.9% 1000ML BAG (SEPSIS BOLUS) IV ONE (13:30)
[2020-02-29] MEDS ORDERED: PIPERACILLIN/TAZOBACTAM 3.375GM/50ML PREMIX IV NR (13:30)
[2020-02-29 14:29] LABS: BASOPHILS % 0.7 % (0.0-2.0); EOSINOPHILS % 2.1 % (0.0-5.0); HEMATOCRIT. 29.3 % (36.0-48.0); HEMOGLOBIN. 9.6 g/dL (12.0-16.0); LYMPHOCYTES % 24.1 % (20.0-50.0); MEAN CORPUSCULAR HEMOGLOBIN 26.3 pg (28.0-32.0); MEAN CORPUSCULAR VOLUME 80.5 fL (81.0-99.0); MEAN PLATELET VOLUME 10.9 fl (7.4-10.4); MONOCYTES % 9.4 % (2.0-8.0); NEUTROPHILS % 63.7 % (40.0-76.0); PLATELET 212 x1000/uL (130-400); RED BLOOD CELL COUNT 3.64 mill/uL (4.2-5.4); RED CELL DISTRIBUTION WIDTH 15.6 % (11.6-14.6)
[2020-02-29 14:37] LABS: CHLORIDE 103 mEq/L (98-107)
[2020-02-29 15:06] LABS: PROTHROMBIN TIME 10.7 sec (9.6-11.0)
[2020-02-29 16:24] LABS: BG BASE EXCESS 7.1 mmol/L (-2.0-2.0); BG CARBOXYHEMOGLOBIN 0.3 % (0.5-1.5); BG DEOXYHEMOGLOBIN 11.8 % (0.0-5.0); BG FRACTION INSPIRED OXYGEN 21; BG HCO3 ACT 32.2 mmol/L (22.0-26.0); BG METHEMOGLOBIN 0.3 % (0.0-1.5); BG OXYGEN SATURATION 88.1 % (92.0-98.5); BG OXYHEMOGLOBIN 87.6 % (94.0-97.0); BG PCO2 47.9 mmHg (35.0-45.0); BG PH 7.445 (7.350-7.450); BG PO2 56.9 mmHg (75.0-100.0); BG SAMPLE SITE RIGHT BRACHIAL; BG TOTAL HEMOGLOBIN 11.6 g/dL (12.0-18.0); BG VENT MODE ROOM AIR
[2020-02-29] MEDS ORDERED: CLONIDINE 0.1MG TABLET GT PRN (19:30)
[2020-02-29] MEDS ORDERED: ACETAMINOPHEN 650MG/20.3ML UDC GT PRN ×2 (19:30)
[2020-02-29] MEDS ORDERED: IPRATROPIUM/ALBUTEROL 0.5-3(2.5)MG/3ML NEB NEB PRN (19:30)
[2020-02-29] MEDS ORDERED: DIPHENHYDRAMINE 50MG/ML VIAL IV PRN (19:30)
[2020-02-29] MEDS ORDERED: ONDANSETRON HCL 4MG/2ML INJ IV PRN (19:30)
[2020-02-29 20:17] LABS: CLARITY URINE TURBID (CLEAR); COLOR URINE YELLOW (YELLOW); KETONES URINE NEGATIVE (NEGATIVE); LEUKOCYTE ESTERASE URINE 3+ (NEGATIVE); NITRITE URINE POSITIVE (NEGATIVE); OCCULT BLOOD URINE 2+ (NEGATIVE); PROTEIN URINE 1+ (NEGATIVE); UROBILINOGEN URINE 0.2 E.U./dL (0.2-1.0)
[2020-02-29] MEDS ORDERED: IOHEXOL-350 100 ML BOTTLE ONE (23:03)
[2020-03-01 02:30] VITALS: BP 151/85
[2020-03-01 04:00] VITALS: BP 132/82
[2020-03-01] MEDS: INSULIN LISPRO 100 UNITS/ML SUBCUT SCH ×4 (07:15→21:00)
[2020-03-01] MEDS: BLOOD SUGAR DIAGNOSTIC STRIP TEST SCH ×4 (07:22→21:00)
[2020-03-01 08:00] VITALS: BP 159/102
[2020-03-01] MEDS ORDERED: ENOXAPARIN 40MG/0.4ML SYR SUBCUT SCH (09:00)
[2020-03-01] MEDS: FUROSEMIDE 40MG/4ML VIAL IVP SCH (10:10)
[2020-03-01] MEDS: CARVEDILOL 3.125 MG TABLET GT SCH ×2 (10:12→22:01)
[2020-03-01 12:00] VITALS: BP 153/79
[2020-03-01] MEDS: SODIUM CHLORIDE 0.9% INJ 3ML FLUSH IVF SCH ×2 (12:41→22:11)
[2020-03-01 16:00] VITALS: BP 137/79
[2020-03-01] MEDS: LOSARTAN POTASSIUM 50 MG TABLET GT SCH (17:06)
[2020-03-01 20:00] VITALS: BP_SYST 119; BP_SYST 143; BP_DIAS 78; BP_DIAS 88
[2020-03-01] MEDS: AMLODIPINE 2.5MG TABLET GT SCH (22:01)
[2020-03-02] VITALS: BP 140/83
[2020-03-02 04:00] VITALS: BP 147/74
[2020-03-02] MEDS: SODIUM CHLORIDE 0.9% INJ 3ML FLUSH IVF SCH ×3 (06:11→21:40)
[2020-03-02] MEDS: BLOOD SUGAR DIAGNOSTIC STRIP TEST SCH ×4 (06:56→21:34)
[2020-03-02] MEDS: INSULIN LISPRO 100 UNITS/ML SUBCUT SCH ×4 (06:58→21:36)
[2020-03-02 08:00] VITALS: BP 157/80
[2020-03-02] MEDS: LOSARTAN POTASSIUM 50 MG TABLET GT SCH (08:53)
[2020-03-02] MEDS: AMLODIPINE 2.5MG TABLET GT SCH ×2 (08:53→21:34)
[2020-03-02] MEDS: CARVEDILOL 3.125 MG TABLET GT SCH ×2 (08:53→21:35)
[2020-03-02] MEDS: FUROSEMIDE 40MG/4ML VIAL IVP SCH (08:53)
[2020-03-02] MEDS: ENOXAPARIN 30MG/0.3ML SYR SUBCUT SCH (08:54)
[2020-03-02 12:00] VITALS: BP 141/76
[2020-03-02] MEDS ORDERED: CEFTRIAXONE 1 G PREMIX 50 ML IV SCH (12:00)
[2020-03-02 16:00] VITALS: BP 136/72
[2020-03-02 20:00] VITALS: BP 142/70
[2020-03-02] MEDS: CEFEPIME 500 MG in DEXTROSE 5% WATER 50 ML IV SCH (23:15)
[2020-03-03] VITALS: BP 129/73
[2020-03-03 04:00] VITALS: BP 134/74
[2020-03-03] MEDS: BLOOD SUGAR DIAGNOSTIC STRIP TEST SCH ×4 (06:23→20:46)
[2020-03-03] MEDS: INSULIN LISPRO 100 UNITS/ML SUBCUT SCH ×4 (06:23→20:46)
[2020-03-03] MEDS: SODIUM CHLORIDE 0.9% INJ 3ML FLUSH IVF SCH ×3 (06:23→21:04)
[2020-03-03 08:00] VITALS: BP 132/75
[2020-03-03] MEDS: AMLODIPINE 2.5MG TABLET GT SCH ×2 (09:26→20:45)
[2020-03-03] MEDS: FUROSEMIDE 40MG/4ML VIAL IVP SCH (09:26)
[2020-03-03] MEDS: LOSARTAN POTASSIUM 50 MG TABLET GT SCH (09:26)
[2020-03-03] MEDS: ENOXAPARIN 30MG/0.3ML SYR SUBCUT SCH (09:27)
[2020-03-03] MEDS: CARVEDILOL 3.125 MG TABLET GT SCH ×2 (09:28→20:46)
[2020-03-03 16:01] VITALS: BP 149/74
[2020-03-03 20:00] VITALS: BP 137/71
[2020-03-03] MEDS: CEFEPIME 500 MG in DEXTROSE 5% WATER 50 ML IV SCH (20:46)
[2020-03-04] VITALS: BP 138/71
[2020-03-04 04:00] VITALS: BP 135/65
[2020-03-04] MEDS: SODIUM CHLORIDE 0.9% INJ 3ML FLUSH IVF SCH ×3 (06:27→21:18)
[2020-03-04] MEDS: INSULIN LISPRO 100 UNITS/ML SUBCUT SCH ×4 (06:27→21:28)
[2020-03-04] MEDS: BLOOD SUGAR DIAGNOSTIC STRIP TEST SCH ×4 (06:28→21:24)
[2020-03-04 07:12] LABS: BASOPHILS % 0.3 % (0.0-2.0); EOSINOPHILS % 3.4 % (0.0-5.0); HEMATOCRIT. 31.7 % (36.0-48.0); HEMOGLOBIN. 10.1 g/dL (12.0-16.0); LYMPHOCYTES % 24.1 % (20.0-50.0); MEAN CORPUSCULAR HEMOGLOBIN 26.3 pg (28.0-32.0); MEAN CORPUSCULAR VOLUME 82.2 fL (81.0-99.0); MEAN PLATELET VOLUME 10.3 fl (7.4-10.4); MONOCYTES % 10.8 % (2.0-8.0); NEUTROPHILS % 61.4 % (40.0-76.0); PLATELET 138 x1000/uL (130-400); RED BLOOD CELL COUNT 3.86 mill/uL (4.2-5.4); RED CELL DISTRIBUTION WIDTH 15.6 % (11.6-14.6)
[2020-03-04 08:00] VITALS: BP 124/70
[2020-03-04 08:00] LABS: CHLORIDE 107 mEq/L (98-107)
[2020-03-04 08:09] LABS: PHOSPHORUS 3.5 mg/dL (2.5-4.9)
[2020-03-04] MEDS: ENOXAPARIN 30MG/0.3ML SYR SUBCUT SCH (09:41)
[2020-03-04] MEDS: LOSARTAN POTASSIUM 50 MG TABLET GT SCH (09:41)
[2020-03-04] MEDS: CARVEDILOL 3.125 MG TABLET GT SCH ×2 (09:41→21:18)
[2020-03-04] MEDS: FUROSEMIDE 40MG/4ML VIAL IVP SCH (09:41)
[2020-03-04] MEDS: AMLODIPINE 2.5MG TABLET GT SCH ×2 (09:42→21:17)
[2020-03-04 12:10] VITALS: BP 134/68
[2020-03-04 16:00] VITALS: BP 147/68
[2020-03-04 16:40] LABS: BG BASE EXCESS 13.2 mmol/L (-2.0-2.0); BG CARBOXYHEMOGLOBIN 0.1 % (0.5-1.5); BG DEOXYHEMOGLOBIN 12.5 % (0.0-5.0); BG FRACTION INSPIRED OXYGEN 21; BG HCO3 ACT 38.8 mmol/L (22.0-26.0); BG METHEMOGLOBIN 0.2 % (0.0-1.5); BG OXYGEN SATURATION 87.5 % (92.0-98.5); BG OXYHEMOGLOBIN 87.2 % (94.0-97.0); BG PCO2 54.4 mmHg (35.0-45.0); BG PH 7.471 (7.350-7.450); BG SAMPLE SITE LEFT RADIAL; BG TOTAL HEMOGLOBIN 11.1 g/dL (12.0-18.0); BG VENT MODE ROOM AIR
[2020-03-04 20:00] VITALS: BP 123/73
[2020-03-04] MEDS: CEFEPIME 500 MG in DEXTROSE 5% WATER 50 ML IV SCH (21:18)
[2020-03-05] VITALS: BP 127/78
[2020-03-05 04:00] VITALS: BP 122/82
[2020-03-05] MEDS: SODIUM CHLORIDE 0.9% INJ 3ML FLUSH IVF SCH ×3 (06:00→21:22)
[2020-03-05] MEDS: BLOOD SUGAR DIAGNOSTIC STRIP TEST SCH ×4 (06:24→21:10)
[2020-03-05] MEDS: INSULIN LISPRO 100 UNITS/ML SUBCUT SCH ×4 (06:29→21:21)
[2020-03-05 07:06] LABS: CHLORIDE 108 mEq/L (98-107)
[2020-03-05 08:00] VITALS: BP 146/80
[2020-03-05] MEDS: LOSARTAN POTASSIUM 50 MG TABLET GT SCH (10:02)
[2020-03-05] MEDS: CARVEDILOL 3.125 MG TABLET GT SCH ×3 (10:02→21:19)
[2020-03-05] MEDS: AMLODIPINE 2.5MG TABLET GT SCH ×2 (10:03→21:20)
[2020-03-05] MEDS: ENOXAPARIN 30MG/0.3ML SYR SUBCUT SCH (10:03)
[2020-03-05 12:00] VITALS: BP 153/76
[2020-03-05 16:00] VITALS: BP_SYST 129; BP_SYST 139; BP_DIAS 79; BP_DIAS 90
[2020-03-05 20:00] VITALS: BP 147/81
[2020-03-05] MEDS: CEFEPIME 500 MG in DEXTROSE 5% WATER 50 ML IV SCH ×2 (21:00→21:20)
[2020-03-06] VITALS: BP 100/68
[2020-03-06 04:00] VITALS: BP 144/72
[2020-03-06] MEDS: SODIUM CHLORIDE 0.9% INJ 3ML FLUSH IVF SCH ×3 (05:45→22:00)
[2020-03-06] MEDS: INSULIN LISPRO 100 UNITS/ML SUBCUT SCH ×3 (06:23→18:26)
[2020-03-06] MEDS: BLOOD SUGAR DIAGNOSTIC STRIP TEST SCH ×4 (06:23→21:00)
[2020-03-06 08:00] VITALS: BP 150/72
[2020-03-06] MEDS: LOSARTAN POTASSIUM 50 MG TABLET GT SCH (08:51)
[2020-03-06] MEDS: CARVEDILOL 3.125 MG TABLET GT SCH (08:52)
[2020-03-06] MEDS: AMLODIPINE 2.5MG TABLET GT SCH ×2 (08:52→21:00)
[2020-03-06] MEDS: ENOXAPARIN 30MG/0.3ML SYR SUBCUT SCH (08:53)
[2020-03-06 12:00] VITALS: BP 156/83
[2020-03-06 16:00] VITALS: BP 152/80
[2020-03-06 20:00] VITALS: BP 141/72
[2020-03-07] VITALS: BP 139/73
[2020-03-07] MEDS: INSULIN LISPRO 100 UNITS/ML SUBCUT SCH ×5 (00:42→21:00)
[2020-03-07 04:00] VITALS: BP 136/72
[2020-03-07] MEDS: SODIUM CHLORIDE 0.9% INJ 3ML FLUSH IVF SCH ×3 (06:00→22:00)
[2020-03-07] MEDS: BLOOD SUGAR DIAGNOSTIC STRIP TEST SCH ×4 (07:19→21:00)
[2020-03-07] MEDS: CARVEDILOL 3.125 MG TABLET GT SCH ×2 (09:00→21:00)
[2020-03-07] MEDS: AMLODIPINE 2.5MG TABLET GT SCH ×2 (09:35→21:00)
[2020-03-07] MEDS: LOSARTAN POTASSIUM 50 MG TABLET GT SCH ×2 (09:40→21:00)
[2020-03-07] MEDS: ENOXAPARIN 30MG/0.3ML SYR SUBCUT SCH (09:41)
[2020-03-07 13:33] VITALS: BP 151/84
[2020-03-07 16:00] VITALS: BP 148/80
[2020-03-07 20:00] VITALS: BP_SYST 126; BP_SYST 132; BP_DIAS 66; BP_DIAS 76
[2020-03-07] MEDS: CEFEPIME 500 MG in DEXTROSE 5% WATER 50 ML IV SCH (21:00)
[2020-03-08] VITALS (8 sets, daily range): BP systolic 116–151; BP diastolic 65–82
[2020-03-08] MEDS: SODIUM CHLORIDE 0.9% INJ 3ML FLUSH IVF SCH ×3 (06:00→21:56)
[2020-03-08] MEDS: BLOOD SUGAR DIAGNOSTIC STRIP TEST SCH ×4 (06:58→21:00)
[2020-03-08] MEDS: INSULIN LISPRO 100 UNITS/ML SUBCUT SCH ×4 (07:15→21:00)
[2020-03-08] MEDS: ENOXAPARIN 30MG/0.3ML SYR SUBCUT SCH (09:31)
[2020-03-08] MEDS: CARVEDILOL 3.125 MG TABLET GT SCH ×2 (09:32→21:57)
[2020-03-08] MEDS: AMLODIPINE 2.5MG TABLET GT SCH ×2 (09:32→21:56)
[2020-03-08] MEDS: LOSARTAN POTASSIUM 50 MG TABLET GT SCH ×2 (09:37→21:57)
[2020-03-09] VITALS: BP 121/61
[2020-03-09 04:00] VITALS: BP 136/63
[2020-03-09] MEDS: BLOOD SUGAR DIAGNOSTIC STRIP TEST SCH ×4 (06:05→21:00)
[2020-03-09] MEDS: SODIUM CHLORIDE 0.9% INJ 3ML FLUSH IVF SCH ×2 (06:10→14:00)
[2020-03-09] MEDS: INSULIN LISPRO 100 UNITS/ML SUBCUT SCH ×4 (06:11→23:31)
[2020-03-09 08:00] VITALS: BP 119/64
[2020-03-09] MEDS: LOSARTAN POTASSIUM 50 MG TABLET GT SCH ×2 (08:51→23:23)
[2020-03-09] MEDS: CARVEDILOL 3.125 MG TABLET GT SCH ×2 (08:52→23:25)
[2020-03-09] MEDS: AMLODIPINE 2.5MG TABLET GT SCH ×2 (08:52→23:24)
[2020-03-09] MEDS: ENOXAPARIN 30MG/0.3ML SYR SUBCUT SCH (08:53)
[2020-03-09 12:00] VITALS: BP 123/62
[2020-03-09] MEDS: INSULIN GLARGINE UD 100 UNITS/ML SYR SUBCUT SCH (12:44)
[2020-03-09 16:00] VITALS: BP 124/62
[2020-03-09 20:00] VITALS: BP 116/60
[2020-03-10] VITALS: BP 103/55
[2020-03-10 04:00] VITALS: BP 116/58
[2020-03-10] MEDS: SODIUM CHLORIDE 0.9% INJ 3ML FLUSH IVF SCH ×3 (06:18→22:00)
[2020-03-10] MEDS: INSULIN LISPRO 100 UNITS/ML SUBCUT SCH ×4 (06:57→21:42)
[2020-03-10] MEDS: BLOOD SUGAR DIAGNOSTIC STRIP TEST SCH ×4 (06:57→21:00)
[2020-03-10 08:00] VITALS: BP 121/58
[2020-03-10] MEDS: LOSARTAN POTASSIUM 50 MG TABLET GT SCH ×2 (08:10→21:40)
[2020-03-10] MEDS: AMLODIPINE 2.5MG TABLET GT SCH ×2 (08:11→21:39)
[2020-03-10] MEDS: ENOXAPARIN 30MG/0.3ML SYR SUBCUT SCH (08:11)
[2020-03-10] MEDS: CARVEDILOL 3.125 MG TABLET GT SCH ×2 (08:11→21:40)
[2020-03-10] MEDS: INSULIN GLARGINE UD 100 UNITS/ML SYR SUBCUT SCH (10:51)
[2020-03-10 12:00] VITALS: BP 135/54
[2020-03-10 16:00] VITALS: BP 137/65
[2020-03-10 20:00] VITALS: BP 137/71
[2020-03-11 00:30] VITALS: BP 130/70
[2020-03-11 04:00] VITALS: BP 140/72
[2020-03-11] MEDS: SODIUM CHLORIDE 0.9% INJ 3ML FLUSH IVF SCH ×3 (06:00→21:01)
[2020-03-11] MEDS: BLOOD SUGAR DIAGNOSTIC STRIP TEST SCH ×4 (06:45→21:00)
[2020-03-11] MEDS: INSULIN LISPRO 100 UNITS/ML SUBCUT SCH ×4 (06:54→21:00)
[2020-03-11 08:00] VITALS: BP 130/68
[2020-03-11] MEDS: AMLODIPINE 2.5MG TABLET GT SCH ×2 (08:38→21:00)
[2020-03-11] MEDS: CARVEDILOL 3.125 MG TABLET GT SCH ×2 (08:38→21:00)
[2020-03-11] MEDS: ENOXAPARIN 30MG/0.3ML SYR SUBCUT SCH (08:40)
[2020-03-11] MEDS: LOSARTAN POTASSIUM 50 MG TABLET GT SCH ×2 (08:41→21:03)
[2020-03-11 12:00] VITALS: BP 118/63
[2020-03-11] MEDS: INSULIN GLARGINE UD 100 UNITS/ML SYR SUBCUT SCH (12:52)
[2020-03-11 16:00] VITALS: BP 134/99
[2020-03-11 20:00] VITALS: BP 118/68
[2020-03-12] VITALS: BP 107/62
[2020-03-12 04:00] VITALS: BP 128/72
[2020-03-12] MEDS: SODIUM CHLORIDE 0.9% INJ 3ML FLUSH IVF SCH ×3 (05:07→22:09)
[2020-03-12] MEDS: BLOOD SUGAR DIAGNOSTIC STRIP TEST SCH ×4 (05:08→21:00)
[2020-03-12] MEDS: INSULIN LISPRO 100 UNITS/ML SUBCUT SCH ×4 (06:16→22:17)
[2020-03-12 08:00] VITALS: BP 148/79
[2020-03-12] MEDS: LOSARTAN POTASSIUM 50 MG TABLET GT SCH ×2 (09:26→22:08)
[2020-03-12] MEDS: CARVEDILOL 3.125 MG TABLET GT SCH ×2 (09:26→22:08)
[2020-03-12] MEDS: ENOXAPARIN 30MG/0.3ML SYR SUBCUT SCH (09:26)
[2020-03-12] MEDS: AMLODIPINE 2.5MG TABLET GT SCH ×2 (09:26→22:08)
[2020-03-12 12:00] VITALS: BP 134/72
[2020-03-12] MEDS: INSULIN GLARGINE UD 100 UNITS/ML SYR SUBCUT SCH (14:21)
[2020-03-12 16:00] VITALS: BP 124/76
[2020-03-12 20:00] VITALS: BP 118/60
[2020-03-13] VITALS: BP 115/76
[2020-03-13 04:00] VITALS: BP 109/54
[2020-03-13] MEDS: BLOOD SUGAR DIAGNOSTIC STRIP TEST SCH ×3 (06:41→16:56)
[2020-03-13] MEDS: SODIUM CHLORIDE 0.9% INJ 3ML FLUSH IVF SCH ×3 (06:42→21:24)
[2020-03-13] MEDS: INSULIN LISPRO 100 UNITS/ML SUBCUT SCH ×3 (06:44→17:14)
[2020-03-13 07:26] LABS: CHLORIDE 120 mEq/L (98-107)
[2020-03-13 07:35] LABS: BASOPHILS % 0.6 % (0.0-2.0); EOSINOPHILS % 3.7 % (0.0-5.0); HEMATOCRIT. 31.3 % (36.0-48.0); LYMPHOCYTES % 26.9 % (20.0-50.0); MEAN CORPUSCULAR HEMOGLOBIN 26.8 pg (28.0-32.0); MEAN CORPUSCULAR VOLUME 83.7 fL (81.0-99.0); MEAN PLATELET VOLUME 11.7 fl (7.4-10.4); NEUTROPHILS % 58.8 % (40.0-76.0); PLATELET 110 x1000/uL (130-400); RED BLOOD CELL COUNT 3.73 mill/uL (4.2-5.4); RED CELL DISTRIBUTION WIDTH 15.8 % (11.6-14.6)
[2020-03-13 08:00] VITALS: BP 113/58
[2020-03-13] MEDS: AMLODIPINE 2.5MG TABLET GT SCH ×2 (08:40→21:00)
[2020-03-13] MEDS: ENOXAPARIN 30MG/0.3ML SYR SUBCUT SCH (08:40)
[2020-03-13] MEDS: LOSARTAN POTASSIUM 50 MG TABLET GT SCH ×2 (08:40→21:00)
[2020-03-13] MEDS: CARVEDILOL 3.125 MG TABLET GT SCH ×2 (08:40→21:00)
[2020-03-13] MEDS: INSULIN GLARGINE UD 100 UNITS/ML SYR SUBCUT SCH (10:45)
[2020-03-13] MEDS: DEXTROSE 5% WATER 1,000 ML IV SCH ×2 (10:50→18:22)
[2020-03-13 12:00] VITALS: BP 106/62
[2020-03-13 16:00] VITALS: BP 121/67
[2020-03-13 20:00] VITALS: BP 107/60
[2020-03-14] VITALS: BP 106/93
[2020-03-14] MEDS: BLOOD SUGAR DIAGNOSTIC STRIP TEST SCH ×4 (00:37→18:24)
[2020-03-14] MEDS: INSULIN LISPRO 100 UNITS/ML SUBCUT SCH ×4 (00:41→18:28)
[2020-03-14 04:00] VITALS: BP 119/64
[2020-03-14] MEDS: SODIUM CHLORIDE 0.9% INJ 3ML FLUSH IVF SCH ×3 (06:07→21:42)
[2020-03-14 06:19] LABS: CHLORIDE 115 mEq/L (98-107)
[2020-03-14] MEDS: DEXTROSE 5% WATER 1,000 ML IV SCH ×2 (06:33→15:26)
[2020-03-14 08:00] VITALS: BP 102/63
[2020-03-14] MEDS: CARVEDILOL 3.125 MG TABLET GT SCH ×2 (09:00→21:00)
[2020-03-14] MEDS: LOSARTAN POTASSIUM 50 MG TABLET GT SCH ×2 (09:00→21:00)
[2020-03-14] MEDS: AMLODIPINE 2.5MG TABLET GT SCH ×2 (09:00→21:00)
[2020-03-14] MEDS: ENOXAPARIN 30MG/0.3ML SYR SUBCUT SCH (10:06)
[2020-03-14 12:00] VITALS: BP 157/83
[2020-03-14] MEDS: INSULIN GLARGINE UD 100 UNITS/ML SYR SUBCUT SCH (13:05)
[2020-03-14 16:00] VITALS: BP 132/76
[2020-03-14 20:00] VITALS: BP 99/63
[2020-03-15] VITALS: BP 101/61
[2020-03-15] MEDS: BLOOD SUGAR DIAGNOSTIC STRIP TEST SCH ×4 (00:25→17:30)
[2020-03-15] MEDS: INSULIN LISPRO 100 UNITS/ML SUBCUT SCH ×4 (00:33→17:32)
[2020-03-15] MEDS: DEXTROSE 5% WATER 1,000 ML IV SCH ×2 (00:36→15:20)
[2020-03-15 04:00] VITALS: BP 145/78
[2020-03-15] MEDS: SODIUM CHLORIDE 0.9% INJ 3ML FLUSH IVF SCH ×3 (05:54→21:27)
[2020-03-15 07:27] LABS: CHLORIDE 109 mEq/L (98-107)
[2020-03-15 08:00] VITALS: BP 143/80
[2020-03-15] MEDS: CARVEDILOL 3.125 MG TABLET GT SCH ×2 (09:19→21:24)
[2020-03-15] MEDS: LOSARTAN POTASSIUM 50 MG TABLET GT SCH ×2 (09:19→21:23)
[2020-03-15] MEDS: ENOXAPARIN 30MG/0.3ML SYR SUBCUT SCH (09:20)
[2020-03-15] MEDS: AMLODIPINE 2.5MG TABLET GT SCH ×2 (09:20→21:23)
[2020-03-15 12:00] VITALS: BP 141/75
[2020-03-15] MEDS: INSULIN GLARGINE UD 100 UNITS/ML SYR SUBCUT SCH (12:18)
[2020-03-15 16:00] VITALS: BP 135/81
[2020-03-15 20:00] VITALS: BP 130/88
[2020-03-16] VITALS: BP 134/74
[2020-03-16] MEDS: DEXTROSE 5% WATER 1,000 ML IV SCH (01:50)
[2020-03-16 04:00] VITALS: BP 139/68
[2020-03-16] MEDS: INSULIN LISPRO 100 UNITS/ML SUBCUT SCH ×4 (06:00→17:05)
[2020-03-16] MEDS: BLOOD SUGAR DIAGNOSTIC STRIP TEST SCH ×4 (06:36→17:04)
[2020-03-16] MEDS: SODIUM CHLORIDE 0.9% INJ 3ML FLUSH IVF SCH ×3 (06:36→21:52)
[2020-03-16] MEDS: LOSARTAN POTASSIUM 50 MG TABLET GT SCH ×2 (08:45→21:51)
[2020-03-16] MEDS: AMLODIPINE 2.5MG TABLET GT SCH ×2 (08:45→21:51)
[2020-03-16] MEDS: CARVEDILOL 3.125 MG TABLET GT SCH ×2 (08:47→21:52)
[2020-03-16] MEDS: ENOXAPARIN 30MG/0.3ML SYR SUBCUT SCH (08:47)
[2020-03-16] MEDS: INSULIN GLARGINE UD 100 UNITS/ML SYR SUBCUT SCH (10:20)
[2020-03-16 12:49] LABS: CHLORIDE 106 mEq/L (98-107)
[2020-03-16 20:00] VITALS: BP_SYST 121; BP_DIAS 61; BP_DIAS 67
[2020-03-17 00:44] VITALS: BP 135/72
[2020-03-17] MEDS: INSULIN LISPRO 100 UNITS/ML SUBCUT SCH ×4 (00:58→18:00)
[2020-03-17 04:00] VITALS: BP 137/67
[2020-03-17] MEDS: SODIUM CHLORIDE 0.9% INJ 3ML FLUSH IVF SCH ×3 (05:39→21:29)
[2020-03-17] MEDS: BLOOD SUGAR DIAGNOSTIC STRIP TEST SCH ×4 (05:45→18:00)
[2020-03-17 08:00] VITALS: BP 141/69
[2020-03-17] MEDS: LOSARTAN POTASSIUM 50 MG TABLET GT SCH ×2 (08:50→21:28)
[2020-03-17] MEDS: ENOXAPARIN 30MG/0.3ML SYR SUBCUT SCH (08:50)
[2020-03-17] MEDS: AMLODIPINE 2.5MG TABLET GT SCH ×2 (08:50→21:28)
[2020-03-17] MEDS: CARVEDILOL 3.125 MG TABLET GT SCH ×2 (08:51→21:28)
[2020-03-17] MEDS: INSULIN GLARGINE UD 100 UNITS/ML SYR SUBCUT SCH (09:37)
[2020-03-17 12:00] VITALS: BP 136/71
[2020-03-17 16:00] VITALS: BP 151/79
[2020-03-17 20:00] VITALS: BP 126/69
[2020-03-18] VITALS: BP 100/73
[2020-03-18 04:00] VITALS: BP 121/62
[2020-03-18] MEDS: BLOOD SUGAR DIAGNOSTIC STRIP TEST SCH ×4 (05:54→17:33)
[2020-03-18] MEDS: SODIUM CHLORIDE 0.9% INJ 3ML FLUSH IVF SCH ×3 (05:58→22:13)
[2020-03-18] MEDS: INSULIN LISPRO 100 UNITS/ML SUBCUT SCH ×4 (06:02→18:19)
[2020-03-18 08:00] VITALS: BP 134/74
[2020-03-18] MEDS: ENOXAPARIN 30MG/0.3ML SYR SUBCUT SCH (08:51)
[2020-03-18] MEDS: CARVEDILOL 3.125 MG TABLET GT SCH ×2 (08:52→22:13)
[2020-03-18] MEDS: AMLODIPINE 2.5MG TABLET GT SCH ×2 (08:52→22:12)
[2020-03-18] MEDS: LOSARTAN POTASSIUM 50 MG TABLET GT SCH ×2 (08:53→22:13)
[2020-03-18] MEDS: INSULIN GLARGINE UD 100 UNITS/ML SYR SUBCUT SCH (10:06)
[2020-03-18 12:00] VITALS: BP 129/63
[2020-03-18 20:00] VITALS: BP 153/72
[2020-03-19] VITALS: BP 130/97
[2020-03-19] MEDS: INSULIN LISPRO 100 UNITS/ML SUBCUT SCH ×4 (01:48→18:12)
[2020-03-19 04:00] VITALS: BP 117/56
[2020-03-19] MEDS: BLOOD SUGAR DIAGNOSTIC STRIP TEST SCH ×6 (06:00→23:57)
[2020-03-19] MEDS: SODIUM CHLORIDE 0.9% INJ 3ML FLUSH IVF SCH ×3 (07:16→21:20)
[2020-03-19 08:00] VITALS: BP 132/53
[2020-03-19] MEDS: CARVEDILOL 3.125 MG TABLET GT SCH ×2 (08:51→21:20)
[2020-03-19] MEDS: AMLODIPINE 2.5MG TABLET GT SCH ×2 (08:51→21:20)
[2020-03-19] MEDS: LOSARTAN POTASSIUM 50 MG TABLET GT SCH ×2 (08:51→21:20)
[2020-03-19] MEDS: ENOXAPARIN 30MG/0.3ML SYR SUBCUT SCH (08:52)
[2020-03-19] MEDS: INSULIN GLARGINE UD 100 UNITS/ML SYR SUBCUT SCH (10:16)
[2020-03-19] MEDS ORDERED: THROMBIN (BOVINE) 5000 UNITS/VIAL TOP ONE (11:22)
[2020-03-19 12:00] VITALS: BP 128/66
[2020-03-19 16:00] VITALS: BP 125/63
[2020-03-19 20:00] VITALS: BP 142/71
[2020-03-20] VITALS: BP 127/77
[2020-03-20] MEDS: INSULIN LISPRO 100 UNITS/ML SUBCUT SCH ×4 (00:05→17:40)
[2020-03-20 04:00] VITALS: BP 151/82
[2020-03-20] MEDS: SODIUM CHLORIDE 0.9% INJ 3ML FLUSH IVF SCH ×3 (06:45→22:30)
[2020-03-20] MEDS: BLOOD SUGAR DIAGNOSTIC STRIP TEST SCH ×3 (06:46→17:40)
[2020-03-20 08:00] VITALS: BP 132/76
[2020-03-20] MEDS: LOSARTAN POTASSIUM 50 MG TABLET GT SCH ×2 (09:32→20:44)
[2020-03-20] MEDS: AMLODIPINE 2.5MG TABLET GT SCH ×2 (09:33→20:44)
[2020-03-20] MEDS: CARVEDILOL 3.125 MG TABLET GT SCH (09:33)
[2020-03-20] MEDS: ENOXAPARIN 30MG/0.3ML SYR SUBCUT SCH (09:37)
[2020-03-20] MEDS: INSULIN GLARGINE UD 100 UNITS/ML SYR SUBCUT SCH (11:27)
[2020-03-20 12:00] VITALS: BP 137/68
[2020-03-20 16:00] VITALS: BP 136/66
[2020-03-20 20:00] VITALS: BP 147/75
[2020-03-20] MEDS: CARVEDILOL 12.5MG TABLET GT SCH (20:45)
[2020-03-21] VITALS (7 sets, daily range): BP systolic 125–141; BP diastolic 69–88
[2020-03-21] MEDS: BLOOD SUGAR DIAGNOSTIC STRIP TEST SCH ×4 (00:51→18:21)
[2020-03-21] MEDS: INSULIN LISPRO 100 UNITS/ML SUBCUT SCH ×4 (00:52→18:00)
[2020-03-21] MEDS: SODIUM CHLORIDE 0.9% INJ 3ML FLUSH IVF SCH ×3 (05:21→21:19)
[2020-03-21] MEDS: LOSARTAN POTASSIUM 50 MG TABLET GT SCH ×2 (08:33→21:17)
[2020-03-21] MEDS: CARVEDILOL 12.5MG TABLET GT SCH ×2 (08:34→21:19)
[2020-03-21] MEDS: AMLODIPINE 2.5MG TABLET GT SCH ×2 (08:34→21:19)
[2020-03-21] MEDS: INSULIN GLARGINE UD 100 UNITS/ML SYR SUBCUT SCH (11:18)
[2020-03-22] VITALS: BP 122/64
[2020-03-22] MEDS: BLOOD SUGAR DIAGNOSTIC STRIP TEST SCH ×4 (00:41→17:50)
[2020-03-22] MEDS: INSULIN LISPRO 100 UNITS/ML SUBCUT SCH ×4 (00:44→17:50)
[2020-03-22 04:00] VITALS: BP 143/78
[2020-03-22] MEDS: SODIUM CHLORIDE 0.9% INJ 3ML FLUSH IVF SCH ×3 (05:51→23:00)
[2020-03-22 08:00] VITALS: BP 140/81
[2020-03-22] MEDS: LOSARTAN POTASSIUM 50 MG TABLET GT SCH ×2 (10:00→22:59)
[2020-03-22] MEDS: CARVEDILOL 12.5MG TABLET GT SCH ×2 (10:00→22:59)
[2020-03-22] MEDS: INSULIN GLARGINE UD 100 UNITS/ML SYR SUBCUT SCH (10:05)
[2020-03-22] MEDS: AMLODIPINE 2.5MG TABLET GT SCH ×2 (11:14→23:00)
[2020-03-22 12:00] VITALS: BP 121/65
[2020-03-22 20:00] VITALS: BP 135/66
[2020-03-22] MEDS: DEXTROSE 50% WATER 50ML SYRINGE IV PRN (23:39)
[2020-03-23] VITALS: BP 90/44
[2020-03-23 04:00] VITALS: BP 112/74
[2020-03-23] MEDS: INSULIN LISPRO 100 UNITS/ML SUBCUT SCH ×5 (06:00→23:05)
[2020-03-23] MEDS: SODIUM CHLORIDE 0.9% INJ 3ML FLUSH IVF SCH ×2 (06:00→14:09)
[2020-03-23] MEDS: BLOOD SUGAR DIAGNOSTIC STRIP TEST SCH ×4 (06:00→17:52)
[2020-03-23] MEDS: DEXTROSE 50% WATER 50ML SYRINGE IV PRN (07:20)
[2020-03-23 08:00] VITALS: BP 119/59
[2020-03-23] MEDS: CARVEDILOL 12.5MG TABLET GT SCH ×2 (09:17→21:28)
[2020-03-23] MEDS: AMLODIPINE 2.5MG TABLET GT SCH ×2 (09:17→21:28)
[2020-03-23] MEDS: INSULIN GLARGINE UD 100 UNITS/ML SYR SUBCUT SCH (09:17)
[2020-03-23] MEDS: LOSARTAN POTASSIUM 50 MG TABLET GT SCH ×2 (09:17→21:28)
[2020-03-23 12:00] VITALS: BP 103/50
[2020-03-23 16:00] VITALS: BP 100/55
[2020-03-23 20:00] VITALS: BP 114/73
[2020-03-24] VITALS: BP 94/54
[2020-03-24 04:00] VITALS: BP 115/62
[2020-03-24] MEDS: BLOOD SUGAR DIAGNOSTIC STRIP TEST SCH ×4 (06:00→17:19)
[2020-03-24] MEDS: SODIUM CHLORIDE 0.9% INJ 3ML FLUSH IVF SCH ×2 (06:31→17:21)
[2020-03-24] MEDS: INSULIN LISPRO 100 UNITS/ML SUBCUT SCH ×3 (06:34→17:20)
[2020-03-24 08:00] VITALS: BP_SYST 110; BP_SYST 112; BP_DIAS 74
[2020-03-24] MEDS: CARVEDILOL 12.5MG TABLET GT SCH ×2 (08:35→21:54)
[2020-03-24] MEDS: AMLODIPINE 2.5MG TABLET GT SCH ×2 (08:35→21:53)
[2020-03-24] MEDS: LOSARTAN POTASSIUM 50 MG TABLET GT SCH ×2 (08:35→21:54)
[2020-03-24] MEDS: INSULIN GLARGINE UD 100 UNITS/ML SYR SUBCUT SCH (09:02)
[2020-03-24 12:29] VITALS: BP 119/57
[2020-03-24 16:26] VITALS: BP 134/96
[2020-03-24 20:00] VITALS: BP 136/74
[2020-03-25] VITALS: BP 127/69
[2020-03-25] MEDS: INSULIN LISPRO 100 UNITS/ML SUBCUT SCH ×5 (00:55→23:56)
[2020-03-25 04:00] VITALS: BP 125/67
[2020-03-25] MEDS: SODIUM CHLORIDE 0.9% INJ 3ML FLUSH IVF SCH ×3 (06:09→20:53)
[2020-03-25] MEDS: BLOOD SUGAR DIAGNOSTIC STRIP TEST SCH ×5 (06:09→23:56)
[2020-03-25 08:00] VITALS: BP 143/65
[2020-03-25] MEDS: AMLODIPINE 2.5MG TABLET GT SCH ×2 (09:53→20:46)
[2020-03-25] MEDS: LOSARTAN POTASSIUM 50 MG TABLET GT SCH ×2 (09:53→20:45)
[2020-03-25] MEDS: CARVEDILOL 12.5MG TABLET GT SCH ×2 (09:53→20:46)
[2020-03-25] MEDS: INSULIN GLARGINE UD 100 UNITS/ML SYR SUBCUT SCH (12:08)
[2020-03-25 20:00] VITALS: BP 165/79
[2020-03-26] VITALS: BP 143/83
[2020-03-26 04:00] VITALS: BP 135/78
[2020-03-26] MEDS: INSULIN LISPRO 100 UNITS/ML SUBCUT SCH ×3 (06:00→18:00)
[2020-03-26] MEDS: BLOOD SUGAR DIAGNOSTIC STRIP TEST SCH ×3 (06:38→18:22)
[2020-03-26] MEDS: SODIUM CHLORIDE 0.9% INJ 3ML FLUSH IVF SCH ×3 (06:38→21:36)
[2020-03-26 08:00] VITALS: BP 153/83
[2020-03-26] MEDS: LOSARTAN POTASSIUM 50 MG TABLET GT SCH ×2 (09:50→21:35)
[2020-03-26] MEDS: CARVEDILOL 12.5MG TABLET GT SCH ×2 (09:50→21:36)
[2020-03-26] MEDS: AMLODIPINE 2.5MG TABLET GT SCH ×2 (09:50→21:35)
[2020-03-26] MEDS: INSULIN GLARGINE UD 100 UNITS/ML SYR SUBCUT SCH (10:06)
[2020-03-26 12:00] VITALS: BP 144/78
[2020-03-26 16:00] VITALS: BP_SYST 137; BP_DIAS 80; BP_DIAS 82
[2020-03-26 20:00] VITALS: BP 138/72
[2020-03-27] VITALS: BP 144/78
[2020-03-27] MEDS: BLOOD SUGAR DIAGNOSTIC STRIP TEST SCH ×5 (00:06→23:11)
[2020-03-27] MEDS: INSULIN LISPRO 100 UNITS/ML SUBCUT SCH ×4 (00:12→23:19)
[2020-03-27 04:00] VITALS: BP 128/72
[2020-03-27] MEDS: SODIUM CHLORIDE 0.9% INJ 3ML FLUSH IVF SCH ×3 (06:28→23:19)
[2020-03-27 08:40] VITALS: BP 124/66
[2020-03-27] MEDS: LOSARTAN POTASSIUM 50 MG TABLET GT SCH ×2 (09:31→21:10)
[2020-03-27] MEDS: AMLODIPINE 2.5MG TABLET GT SCH ×2 (09:31→21:10)
[2020-03-27] MEDS: CARVEDILOL 12.5MG TABLET GT SCH ×2 (09:31→21:17)
[2020-03-27] MEDS: INSULIN GLARGINE UD 100 UNITS/ML SYR SUBCUT SCH (10:41)
[2020-03-27 12:00] VITALS: BP 128/74
[2020-03-27 16:53] VITALS: BP_SYST 126; BP_SYST 128; BP_DIAS 66; BP_DIAS 74
[2020-03-27 20:00] VITALS: BP 153/66
[2020-03-28] VITALS: BP 137/72
[2020-03-28 04:00] VITALS: BP 133/53
[2020-03-28] MEDS: BLOOD SUGAR DIAGNOSTIC STRIP TEST SCH ×4 (06:16→23:39)
[2020-03-28] MEDS: SODIUM CHLORIDE 0.9% INJ 3ML FLUSH IVF SCH ×3 (06:17→21:24)
[2020-03-28] MEDS: INSULIN LISPRO 100 UNITS/ML SUBCUT SCH ×4 (06:25→23:47)
[2020-03-28 08:00] VITALS: BP_SYST 129; BP_SYST 133; BP_DIAS 71; BP_DIAS 73
[2020-03-28] MEDS: LOSARTAN POTASSIUM 50 MG TABLET GT SCH ×2 (08:51→21:24)
[2020-03-28] MEDS: AMLODIPINE 2.5MG TABLET GT SCH ×2 (08:51→21:24)
[2020-03-28] MEDS: CARVEDILOL 12.5MG TABLET GT SCH ×2 (08:52→21:24)
[2020-03-28] MEDS: INSULIN GLARGINE UD 100 UNITS/ML SYR SUBCUT SCH (10:18)
[2020-03-28 12:00] VITALS: BP 111/63
[2020-03-28 16:00] VITALS: BP 117/51
[2020-03-28 17:32] LABS: CHLORIDE 117 mEq/L (98-107)
[2020-03-28 20:00] VITALS: BP 127/70
[2020-03-28] MEDS: DEXT 5% WATER + KCL 20MEQ/L 1,000 ML IV SCH (21:24)
[2020-03-29] VITALS: BP 129/69
[2020-03-29] MEDS: DEXT 5% WATER + KCL 20MEQ/L 1,000 ML IV SCH ×2 (03:32→08:50)
[2020-03-29 04:00] VITALS: BP 130/67
[2020-03-29] MEDS: BLOOD SUGAR DIAGNOSTIC STRIP TEST SCH ×3 (05:25→18:03)
[2020-03-29] MEDS: SODIUM CHLORIDE 0.9% INJ 3ML FLUSH IVF SCH (05:41)
[2020-03-29] MEDS: INSULIN LISPRO 100 UNITS/ML SUBCUT SCH ×3 (05:51→18:03)
[2020-03-29 08:00] VITALS: BP 135/75
[2020-03-29 08:17] LABS: CHLORIDE 111 mEq/L (98-107)
[2020-03-29] MEDS: CARVEDILOL 12.5MG TABLET GT SCH (09:34)
[2020-03-29] MEDS: LOSARTAN POTASSIUM 50 MG TABLET GT SCH ×2 (09:34→20:39)
[2020-03-29] MEDS: AMLODIPINE 2.5MG TABLET GT SCH ×2 (09:34→20:39)
[2020-03-29] MEDS ORDERED: INSULIN GLARGINE UD 100 UNITS/ML SYR SUBCUT SCH (10:00)
[2020-03-29 12:00] VITALS: BP 126/66
[2020-03-29] MEDS ORDERED: DEXTROSE 50% WATER 50ML SYRINGE IV PRN (16:15)
[2020-03-29 20:00] VITALS: BP 124/55
== END 2020-03-29 22:19 | disposition home health service (06) | DRG 720 ==
LOC: ER 11:32 → 5WST 17:57 → EDBEDREQTM 18:24 → EDBEDREQ 18:24 → EDBEDREQSVC 18:24 → CANRESERV 23:10 → ENRESERV 23:10
PROVIDERS: ADMIT Internal Medicine; ATTEND Internal Medicine
DX: A41.9 Sepsis, unspecified organism (principal); E43 Unspecified severe protein-calorie malnutrition; I50.23 Acute on chronic systolic (congestive) heart failure; L89.159 Pressure ulcer of sacral region, unspecified stage; N17.9 Acute kidney failure, unspecified; E87.0 Hyperosmolality and hypernatremia; I42.9 Cardiomyopathy, unspecified; R13.10 Dysphagia, unspecified; E86.0 Dehydration; I11.0 Hypertensive heart disease with heart failure; I47.1 Supraventricular tachycardia; D64.9 Anemia, unspecified; E11.9 Type 2 diabetes mellitus without complications; F03.90 Unspecified dementia, unspecified severity, without behavioral disturbance, psychotic disturbance, mood disturbance, and anxiety; N39.0 Urinary tract infection, site not specified; E78.5 Hyperlipidemia, unspecified; K76.0 Fatty (change of) liver, not elsewhere classified; Z93.1 Gastrostomy status; Z79.899 Other long term (current) drug therapy; I69.354 Hemiplegia and hemiparesis following cerebral infarction affecting left non-dominant side; Z68.25 Body mass index [BMI] 25.0-25.9, adult; Z78.9 Other specified health status; Z87.01 Personal history of pneumonia (recurrent); Z79.84 Long term (current) use of oral hypoglycemic drugs
CPT/HCPCS: 36415; 36600; 71045; 71275; 80048; 80053; 81003; 82375; 82805; 82962; 83036; 83605; 83735; 83880; 84100; 84145; 84484; 85025; 85379; 87077; 87186; 93005; 99285; J0692; J0696; J1650; J1815; J1940; J2543; J3370; J3490; J7030; J7060; J7070; Q9967

== ENCOUNTER 2020-04-10 22:16 | Inpatient (IN) | payer MEDICARE, MEDICAID ==
[~2020-04-10] VITALS: Ht 167.6 cm; Wt 65.3 kg
[2020-04-10] MEDS ORDERED: SODIUM CHLORIDE 0.9% 1,000 ML IV ONE (22:37)
[2020-04-10 23:10] LABS: BG BASE EXCESS 7.4 mmol/L (-2.0-2.0); BG CARBOXYHEMOGLOBIN 0.3 % (0.5-1.5); BG DEOXYHEMOGLOBIN 2.4 % (0.0-5.0); BG FRACTION INSPIRED OXYGEN 28; BG HCO3 ACT 35.5 mmol/L (22.0-26.0); BG METHEMOGLOBIN 0.3 % (0.0-1.5); BG OXYGEN SATURATION 97.6 % (92.0-98.5); BG PH 7.317 (7.350-7.450); BG PO2 114.8 mmHg (75.0-100.0); BG SAMPLE SITE LEFT BRACHIAL; BG TOTAL HEMOGLOBIN 11.1 g/dL (12.0-18.0); BG VENT MODE NASAL CANNULA
[2020-04-10 23:40] LABS: CHLORIDE 125 mEq/L (98-107)
[2020-04-10 23:43] LABS: BASOPHILS % 0.5 % (0.0-2.0); EOSINOPHILS % 2.6 % (0.0-5.0); HEMATOCRIT. 34.2 % (36.0-48.0); HEMOGLOBIN. 10.8 g/dL (12.0-16.0); LYMPHOCYTES % 20.8 % (20.0-50.0); MEAN CORPUSCULAR HEMOGLOBIN 26.8 pg (28.0-32.0); MEAN CORPUSCULAR VOLUME 84.7 fL (81.0-99.0); MEAN PLATELET VOLUME 12.1 fl (7.4-10.4); MONOCYTES % 6.7 % (2.0-8.0); NEUTROPHILS % 69.4 % (40.0-76.0); PLATELET 88 x1000/uL (130-400); RED BLOOD CELL COUNT 4.04 mill/uL (4.2-5.4); RED CELL DISTRIBUTION WIDTH 16.6 % (11.6-14.6)
[2020-04-11] VITALS (27 sets, daily range): BP systolic 106–143; BP diastolic 53–87
[2020-04-11] MEDS ORDERED: PROPOFOL 10MG/ML 100ML 100 ML IV ONE
[2020-04-11 00:29] LABS: CLARITY URINE TURBID (CLEAR); COLOR URINE YELLOW (YELLOW); KETONES URINE NEGATIVE (NEGATIVE); LEUKOCYTE ESTERASE URINE 3+ (NEGATIVE); NITRITE URINE NEGATIVE (NEGATIVE); OCCULT BLOOD URINE 1+ (NEGATIVE); PROTEIN URINE NEGATIVE (NEGATIVE); SPECIFIC GRAVITY URINE 1.016 (1.005-1.030); UROBILINOGEN URINE 0.2 E.U./dL (0.2-1.0)
[2020-04-11] MEDS ORDERED: SUCCINYLCHOLINE CHLORIDE 200MG/10ML IV ONE ×2 (01:00)
[2020-04-11] MEDS ORDERED: ETOMIDATE 2MG/ML 10ML VIAL IV ONE ×2 (01:00)
[2020-04-11] MEDS ORDERED: DEXT 5%/0.45% NACL 1000ML 1,000 ML IV ONE (01:05)
[2020-04-11 01:08] LABS: BG BASE EXCESS 6.1 mmol/L (-2.0-2.0); BG CARBOXYHEMOGLOBIN 0.3 % (0.5-1.5); BG DEOXYHEMOGLOBIN 1.3 % (0.0-5.0); BG FRACTION INSPIRED OXYGEN 50; BG HCO3 ACT 30.1 mmol/L (22.0-26.0); BG METHEMOGLOBIN 0.2 % (0.0-1.5); BG OXYGEN SATURATION 98.7 % (92.0-98.5); BG OXYHEMOGLOBIN 98.2 % (94.0-97.0); BG PH 7.483 (7.350-7.450); BG PO2 176.8 mmHg (75.0-100.0); BG SAMPLE SITE LEFT FEMORAL; BG TOTAL HEMOGLOBIN 10.7 g/dL (12.0-18.0); BG VENT MODE VENT - A/C; BG VENT RATE 18 set
[2020-04-11] MEDS ORDERED: DIPHENHYDRAMINE 50MG/ML VIAL IV PRN (08:00)
[2020-04-11] MEDS ORDERED: ONDANSETRON HCL 4MG/2ML INJ IV PRN (08:00)
[2020-04-11] MEDS: DEXTROSE 5% WATER 1,000 ML IV SCH ×2 (08:00→23:38)
[2020-04-11] MEDS ORDERED: LORAZEPAM 2MG/ML CPJ IV PRN (09:45)
[2020-04-11] MEDS ORDERED: NOREPINEPHRINE 16 MG in DEXT 5% WATER 234 ML IV PRN (09:45)
[2020-04-11] MEDS ORDERED: MORPHINE SULFATE 2 MG/ML CPJ (NOT FOR IM USE) IV PRN (09:45)
[2020-04-11 10:58] LABS: PHOSPHORUS 1.8 mg/dL (2.5-4.9)
[2020-04-11] MEDS ORDERED: DEXTROSE 50% WATER 50ML SYRINGE IV PRN (11:15)
[2020-04-11] MEDS ORDERED: CEFTRIAXONE 1 G PREMIX 50 ML IV SCH (13:00)
[2020-04-11] MEDS ORDERED: LIDOCAINE HCL 1% 20ML VIAL (Pyxis) INJ ONE (13:07)
[2020-04-11] MEDS: PANTOPRAZOLE SODIUM 40 MG/VIAL IV SCH (13:58)
[2020-04-11] MEDS: BLOOD SUGAR DIAGNOSTIC STRIP TEST SCH ×2 (13:58→17:30)
[2020-04-11] MEDS ORDERED: SODIUM PHOS,M-BASIC-D-BASIC 20 MM in DEXT 5% WATER 243.3333 ML IV NR (15:00)
[2020-04-11] MEDS: INSULIN LISPRO 100 UNITS/ML SUBCUT SCH ×2 (15:20→17:55)
[2020-04-11 16:31] LABS: CREATINE KINASE 404 IU/L (26-192)
[2020-04-11 16:32] LABS: CREATINE KINASE MB FRACTION < 1.0 ng/mL (0.5-3.6)
[2020-04-11] MEDS: ACETAMINOPHEN 650MG/20.3ML UDC GT PRN (22:53)
[2020-04-11 23:32] LABS: CREATINE KINASE 760 IU/L (26-192)
[2020-04-11 23:33] LABS: CREATINE KINASE MB FRACTION < 1.0 ng/mL (0.5-3.6)
[2020-04-11] MEDS: CEFEPIME 1,000 MG in DEXTROSE 5% WATER 50 ML IV SCH (23:38)
[2020-04-12] VITALS (22 sets, daily range): BP systolic 93–149; BP diastolic 43–82
[2020-04-12] MEDS: BLOOD SUGAR DIAGNOSTIC STRIP TEST SCH ×5 (00:05→23:28)
[2020-04-12] MEDS: INSULIN LISPRO 100 UNITS/ML SUBCUT SCH ×5 (00:09→23:32)
[2020-04-12 05:35] LABS: CHLORIDE 124 mEq/L (98-107)
[2020-04-12 05:49] LABS: PHOSPHORUS 3.5 mg/dL (2.5-4.9)
[2020-04-12 05:50] LABS: LDL CHOLESTEROL 54 mg/dL (5-100)
[2020-04-12 05:52] LABS: HDL CHOLESTEROL 46 mg/dL (40-59)
[2020-04-12] MEDS: PANTOPRAZOLE SODIUM 40 MG/VIAL IV SCH (08:52)
[2020-04-12 09:12] LABS: BG BASE EXCESS 0.9 mmol/L (-2.0-2.0); BG CARBOXYHEMOGLOBIN 0.3 % (0.5-1.5); BG DEOXYHEMOGLOBIN 6.3 % (0.0-5.0); BG FRACTION INSPIRED OXYGEN 40; BG HCO3 ACT 24.3 mmol/L (22.0-26.0); BG METHEMOGLOBIN 0.2 % (0.0-1.5); BG OXYGEN SATURATION 93.7 % (92.0-98.5); BG OXYHEMOGLOBIN 93.2 % (94.0-97.0); BG PCO2 33.7 mmHg (35.0-45.0); BG PH 7.475 (7.350-7.450); BG PO2 71.8 mmHg (75.0-100.0); BG SAMPLE SITE RIGHT RADIAL; BG TIDAL VOLUME(mL) 450 mL; BG TOTAL HEMOGLOBIN 9.8 g/dL (12.0-18.0); BG VENT MODE VENT - A/C; BG VENT RATE 14 set
[2020-04-12 09:46] LABS: HEMATOCRIT. 32.2 % (36.0-48.0); HEMOGLOBIN. 10.3 g/dL (12.0-16.0); MEAN CORPUSCULAR HEMOGLOBIN 26.7 pg (28.0-32.0); MEAN CORPUSCULAR VOLUME 83.8 fL (81.0-99.0); MEAN PLATELET VOLUME 11.8 fl (7.4-10.4); PLATELET 70 x1000/uL (130-400); RED BLOOD CELL COUNT 3.84 mill/uL (4.2-5.4); RED CELL DISTRIBUTION WIDTH 16.5 % (11.6-14.6)
[2020-04-12] MEDS: CEFEPIME 1,000 MG in DEXTROSE 5% WATER 50 ML IV SCH ×2 (11:20→22:15)
[2020-04-12] MEDS: DEXTROSE 5% WATER 1,000 ML IV SCH (11:20)
[2020-04-12 13:38] LABS: PLATELET ESTIMATE DECREASED
[2020-04-12] MEDS ORDERED: POTASSIUM CHLORIDE INJ 40 MEQ in DEXT 5% WATER 250 ML IV SCH (15:00)
[2020-04-12] MEDS: IPRATROPIUM/ALBUTEROL 0.5-3(2.5)MG/3ML NEB HHN SCH (21:01)
[2020-04-13] VITALS (25 sets, daily range): BP systolic 105–131; BP diastolic 47–79
[2020-04-13] MEDS: DEXTROSE 5% WATER 1,000 ML IV SCH ×3 (02:37→23:23)
[2020-04-13] MEDS: IPRATROPIUM/ALBUTEROL 0.5-3(2.5)MG/3ML NEB HHN SCH ×4 (02:45→20:28)
[2020-04-13] MEDS: BLOOD SUGAR DIAGNOSTIC STRIP TEST SCH ×3 (05:27→17:20)
[2020-04-13] MEDS: INSULIN LISPRO 100 UNITS/ML SUBCUT SCH ×3 (05:28→17:12)
[2020-04-13 06:41] LABS: BASOPHILS % 0.5 % (0.0-2.0); EOSINOPHILS % 2.5 % (0.0-5.0); HEMATOCRIT. 26.9 % (36.0-48.0); HEMOGLOBIN. 8.7 g/dL (12.0-16.0); MEAN CORPUSCULAR HEMOGLOBIN 26.7 pg (28.0-32.0); MEAN CORPUSCULAR VOLUME 82.6 fL (81.0-99.0); MONOCYTES % 7.1 % (2.0-8.0); NEUTROPHILS % 79.9 % (40.0-76.0); PLATELET 64 x1000/uL (130-400); RED BLOOD CELL COUNT 3.26 mill/uL (4.2-5.4); RED CELL DISTRIBUTION WIDTH 16.3 % (11.6-14.6)
[2020-04-13 07:49] LABS: CHLORIDE 117 mEq/L (98-107)
[2020-04-13] MEDS: PANTOPRAZOLE SODIUM 40 MG/VIAL IV SCH (09:25)
[2020-04-13 09:38] LABS: BG BASE EXCESS 1.3 mmol/L (-2.0-2.0); BG CARBOXYHEMOGLOBIN 0.1 % (0.5-1.5); BG FRACTION INSPIRED OXYGEN 40; BG METHEMOGLOBIN 0.6 % (0.0-1.5); BG OXYHEMOGLOBIN 97.3 % (94.0-97.0); BG PCO2 35.5 mmHg (35.0-45.0); BG PH 7.465 (7.350-7.450); BG PO2 143.5 mmHg (75.0-100.0); BG SAMPLE SITE RIGHT RADIAL; BG TIDAL VOLUME(mL) 450 mL; BG TOTAL HEMOGLOBIN 9.5 g/dL (12.0-18.0); BG VENT MODE VENT - A/C; BG VENT RATE 14 set
[2020-04-13] MEDS: CEFEPIME 1,000 MG in DEXTROSE 5% WATER 50 ML IV SCH (12:27)
[2020-04-13] MEDS ORDERED: POTASSIUM PHOS,M-BASIC-D-BASIC 15 MMOL in DEXT 5% WATER 245 ML IV NR (13:30)
[2020-04-13 13:58] LABS: PHOSPHORUS 2.3 mg/dL (2.5-4.9)
[2020-04-13] MEDS: CEFAZOLIN 1000MG PREMIX 50 ML IV SCH (23:32)
[2020-04-14] VITALS (43 sets, daily range): BP systolic 97–136; BP diastolic 41–90
[2020-04-14] MEDS: BLOOD SUGAR DIAGNOSTIC STRIP TEST SCH ×4 (00:34→18:00)
[2020-04-14] MEDS: IPRATROPIUM/ALBUTEROL 0.5-3(2.5)MG/3ML NEB HHN SCH ×4 (02:08→20:10)
[2020-04-14] MEDS: INSULIN LISPRO 100 UNITS/ML SUBCUT SCH ×4 (06:20→18:00)
[2020-04-14 06:47] LABS: BASOPHILS % 0.3 % (0.0-2.0); EOSINOPHILS % 1.9 % (0.0-5.0); HEMATOCRIT. 25.8 % (36.0-48.0); HEMOGLOBIN. 8.3 g/dL (12.0-16.0); LYMPHOCYTES % 10.2 % (20.0-50.0); MEAN CORPUSCULAR HEMOGLOBIN 26.8 pg (28.0-32.0); MEAN CORPUSCULAR VOLUME 82.9 fL (81.0-99.0); MEAN PLATELET VOLUME 11.8 fl (7.4-10.4); MONOCYTES % 6.8 % (2.0-8.0); NEUTROPHILS % 80.8 % (40.0-76.0); PLATELET 93 x1000/uL (130-400); RED BLOOD CELL COUNT 3.11 mill/uL (4.2-5.4); RED CELL DISTRIBUTION WIDTH 15.9 % (11.6-14.6)
[2020-04-14 06:58] LABS: CHLORIDE 113 mEq/L (98-107)
[2020-04-14 07:17] LABS: PHOSPHORUS 2.4 mg/dL (2.5-4.9)
[2020-04-14] MEDS: PANTOPRAZOLE SODIUM 40 MG/VIAL IV SCH (08:36)
[2020-04-14] MEDS: CEFAZOLIN 1000MG PREMIX 50 ML IV SCH (11:43)
[2020-04-14] MEDS ORDERED: POTASSIUM PHOS,M-BASIC-D-BASIC 30 MMOL in DEXT 5% WATER 500 ML IV SCH (15:30)
[2020-04-15] VITALS (72 sets, daily range): BP systolic 92–143; BP diastolic 48–115
[2020-04-15] MEDS: CEFAZOLIN 1000MG PREMIX 50 ML IV SCH ×3 (00:10→23:26)
[2020-04-15] MEDS: DEXTROSE 5% WATER 1,000 ML IV SCH ×3 (00:10→22:33)
[2020-04-15] MEDS: INSULIN LISPRO 100 UNITS/ML SUBCUT SCH ×5 (00:19→23:25)
[2020-04-15] MEDS: BLOOD SUGAR DIAGNOSTIC STRIP TEST SCH ×5 (00:19→23:25)
[2020-04-15] MEDS: IPRATROPIUM/ALBUTEROL 0.5-3(2.5)MG/3ML NEB HHN SCH ×4 (01:10→20:54)
[2020-04-15 06:17] LABS: BASOPHILS % 0.3 % (0.0-2.0); EOSINOPHILS % 2.2 % (0.0-5.0); HEMATOCRIT. 24.1 % (36.0-48.0); LYMPHOCYTES % 10.9 % (20.0-50.0); MEAN CORPUSCULAR HEMOGLOBIN 26.6 pg (28.0-32.0); MEAN CORPUSCULAR VOLUME 80.7 fL (81.0-99.0); MEAN PLATELET VOLUME 12.2 fl (7.4-10.4); NEUTROPHILS % 79.6 % (40.0-76.0); PLATELET 88 x1000/uL (130-400); RED BLOOD CELL COUNT 2.99 mill/uL (4.2-5.4); RED CELL DISTRIBUTION WIDTH 15.7 % (11.6-14.6)
[2020-04-15 06:29] LABS: CHLORIDE 111 mEq/L (98-107)
[2020-04-15 06:34] LABS: PHOSPHORUS 3.1 mg/dL (2.5-4.9)
[2020-04-15 07:35] LABS: BG TIDAL VOLUME(mL) 400 mL
[2020-04-15] MEDS: PANTOPRAZOLE SODIUM 40 MG/VIAL IV SCH (08:54)
[2020-04-15 10:31] LABS: BG CARBOXYHEMOGLOBIN 0.3 % (0.5-1.5); BG DEOXYHEMOGLOBIN 3.5 % (0.0-5.0); BG FRACTION INSPIRED OXYGEN 40; BG HCO3 ACT 26.7 mmol/L (22.0-26.0); BG METHEMOGLOBIN 0.4 % (0.0-1.5); BG OXYGEN SATURATION 96.5 % (92.0-98.5); BG OXYHEMOGLOBIN 95.8 % (94.0-97.0); BG PCO2 37.3 mmHg (35.0-45.0); BG PH 7.473 (7.350-7.450); BG SAMPLE SITE RIGHT RADIAL; BG TIDAL VOLUME(mL) 450 mL; BG TOTAL HEMOGLOBIN 8.5 g/dL (12.0-18.0); BG VENT MODE VENT - A/C; BG VENT RATE 14 set
[2020-04-15] MEDS ORDERED: LIDOCAINE HCL/PF 1% 2ML VIAL ONE (13:05)
[2020-04-16] VITALS (49 sets, daily range): BP systolic 107–139; BP diastolic 54–76
[2020-04-16] MEDS: IPRATROPIUM/ALBUTEROL 0.5-3(2.5)MG/3ML NEB HHN SCH ×4 (02:35→20:28)
[2020-04-16] MEDS: BLOOD SUGAR DIAGNOSTIC STRIP TEST SCH ×4 (05:30→23:25)
[2020-04-16] MEDS: INSULIN LISPRO 100 UNITS/ML SUBCUT SCH ×4 (05:31→23:25)
[2020-04-16 06:49] LABS: CHLORIDE 107 mEq/L (98-107)
[2020-04-16 06:59] LABS: TOTAL IRON BINDING CAPACITY 233 ug/dL (250-450)
[2020-04-16 07:14] LABS: FOLIC ACID (FOLATE) SERUM >20 ng/mL ng/mL (>5.38)
[2020-04-16 07:28] LABS: VITAMIN B12 SERUM 1951 pg/mL (211-911)
[2020-04-16 07:53] LABS: BASOPHILS % 0.2 % (0.0-2.0); EOSINOPHILS % 1.7 % (0.0-5.0); HEMATOCRIT. 23.9 % (36.0-48.0); HEMOGLOBIN. 7.8 g/dL (12.0-16.0); LYMPHOCYTES % 11.6 % (20.0-50.0); MEAN CORPUSCULAR HEMOGLOBIN 26.5 pg (28.0-32.0); MEAN CORPUSCULAR VOLUME 81.5 fL (81.0-99.0); MONOCYTES % 9.8 % (2.0-8.0); NEUTROPHILS % 76.7 % (40.0-76.0); RED BLOOD CELL COUNT 2.94 mill/uL (4.2-5.4); RED CELL DISTRIBUTION WIDTH 15.8 % (11.6-14.6)
[2020-04-16] MEDS: PANTOPRAZOLE SODIUM 40 MG/VIAL IV SCH (08:53)
[2020-04-16] MEDS: ENOXAPARIN 30MG/0.3ML SYR SUBCUT SCH (08:55)
[2020-04-16 10:10] LABS: MEAN PLATELET VOLUME 12.4 fl (7.4-10.4); PLATELET 115 x1000/uL (130-400)
[2020-04-16] MEDS: CEFAZOLIN 1000MG PREMIX 50 ML IV SCH ×2 (12:10→23:25)
[2020-04-16 12:49] LABS: FERRITIN 277 ng/mL (10-291)
[2020-04-16] MEDS ORDERED: SODIUM CHLORIDE 0.9% 500 ML IV SCH (18:00)
[2020-04-17] VITALS (35 sets, daily range): BP systolic 112–153; BP diastolic 49–85
[2020-04-17] MEDS: IPRATROPIUM/ALBUTEROL 0.5-3(2.5)MG/3ML NEB HHN SCH ×4 (02:02→20:45)
[2020-04-17] MEDS: BLOOD SUGAR DIAGNOSTIC STRIP TEST SCH ×4 (05:46→23:46)
[2020-04-17] MEDS: INSULIN LISPRO 100 UNITS/ML SUBCUT SCH ×4 (06:01→23:45)
[2020-04-17 06:10] LABS: CHLORIDE 109 mEq/L (98-107)
[2020-04-17 06:15] LABS: PHOSPHORUS 2.2 mg/dL (2.5-4.9)
[2020-04-17 06:24] LABS: HEMATOCRIT. 23.8 % (36.0-48.0); HEMOGLOBIN. 7.8 g/dL (12.0-16.0); MEAN CORPUSCULAR HEMOGLOBIN 26.6 pg (28.0-32.0); MEAN CORPUSCULAR VOLUME 81.3 fL (81.0-99.0); MEAN PLATELET VOLUME 11.3 fl (7.4-10.4); PLATELET 151 x1000/uL (130-400); RED BLOOD CELL COUNT 2.92 mill/uL (4.2-5.4); RED CELL DISTRIBUTION WIDTH 15.5 % (11.6-14.6)
[2020-04-17] MEDS: DEXTROSE 5% WATER 1,000 ML IV SCH (06:47)
[2020-04-17] MEDS: PANTOPRAZOLE SODIUM 40 MG/VIAL IV SCH (09:19)
[2020-04-17] MEDS: LACTOBACILLUS GG CAPSULE PO SCH (09:19)
[2020-04-17] MEDS: ENOXAPARIN 30MG/0.3ML SYR SUBCUT SCH (09:19)
[2020-04-17 09:57] LABS: BG CARBOXYHEMOGLOBIN 0.3 % (0.5-1.5); BG DEOXYHEMOGLOBIN 1.7 % (0.0-5.0); BG FRACTION INSPIRED OXYGEN 35; BG HCO3 ACT 30.7 mmol/L (22.0-26.0); BG METHEMOGLOBIN 0.6 % (0.0-1.5); BG OXYGEN SATURATION 98.3 % (92.0-98.5); BG OXYHEMOGLOBIN 97.4 % (94.0-97.0); BG PCO2 46.1 mmHg (35.0-45.0); BG PH 7.442 (7.350-7.450); BG PO2 120.3 mmHg (75.0-100.0); BG PRESSURE SUPPORT 12; BG SAMPLE SITE RIGHT RADIAL; BG TIDAL VOLUME(mL) 450 mL; BG TOTAL HEMOGLOBIN 8.3 g/dL (12.0-18.0); BG VENT MODE VENT - SIMV; BG VENT RATE 8 set
[2020-04-17 11:10] LABS: NUCLEATED RED BLOOD CELLS 1 /100 WBC; PLATELET ESTIMATE NORMAL
[2020-04-17] MEDS ORDERED: POTASSIUM PHOS,M-BASIC-D-BASIC 15 MMOL in DEXT 5% WATER 245 ML IV NR (12:00)
[2020-04-17] MEDS: CEFAZOLIN 1000MG PREMIX 50 ML IV SCH ×2 (12:38→23:45)
[2020-04-18] VITALS (37 sets, daily range): BP systolic 103–162; BP diastolic 54–99
[2020-04-18] MEDS: DEXTROSE 5% WATER 1,000 ML IV SCH ×2 (02:38→08:57)
[2020-04-18] MEDS: IPRATROPIUM/ALBUTEROL 0.5-3(2.5)MG/3ML NEB HHN SCH ×3 (02:42→20:43)
[2020-04-18] MEDS: BLOOD SUGAR DIAGNOSTIC STRIP TEST SCH ×3 (05:38→17:13)
[2020-04-18] MEDS: INSULIN LISPRO 100 UNITS/ML SUBCUT SCH ×3 (05:38→17:15)
[2020-04-18 05:40] LABS: CHLORIDE 106 mEq/L (98-107)
[2020-04-18 06:46] LABS: HEMATOCRIT. 23.7 % (36.0-48.0); HEMOGLOBIN. 7.8 g/dL (12.0-16.0); MEAN CORPUSCULAR HEMOGLOBIN 26.8 pg (28.0-32.0); MEAN CORPUSCULAR VOLUME 81.8 fL (81.0-99.0); PLATELET 172 x1000/uL (130-400); RED CELL DISTRIBUTION WIDTH 15.5 % (11.6-14.6)
[2020-04-18] MEDS: IPRATROPIUM/ALBUTEROL 0.5-3(2.5)MG/3ML NEB HHN PRN (08:09)
[2020-04-18] MEDS: LACTOBACILLUS GG CAPSULE PO SCH (08:56)
[2020-04-18] MEDS: PANTOPRAZOLE SODIUM 40 MG/VIAL IV SCH (08:56)
[2020-04-18] MEDS: ENOXAPARIN 30MG/0.3ML SYR SUBCUT SCH (08:57)
[2020-04-18 10:32] LABS: PLATELET ESTIMATE NORMAL
[2020-04-18 13:30] LABS: BG BASE EXCESS 2.4 mmol/L (-2.0-2.0); BG CARBOXYHEMOGLOBIN 0.2 % (0.5-1.5); BG DEOXYHEMOGLOBIN 2.7 % (0.0-5.0); BG FRACTION INSPIRED OXYGEN 35; BG HCO3 ACT 27.8 mmol/L (22.0-26.0); BG METHEMOGLOBIN 0.5 % (0.0-1.5); BG OXYGEN SATURATION 97.3 % (92.0-98.5); BG OXYHEMOGLOBIN 96.6 % (94.0-97.0); BG PCO2 46.9 mmHg (35.0-45.0); BG PO2 111.6 mmHg (75.0-100.0); BG PRESSURE SUPPORT 8; BG SAMPLE SITE RIGHT RADIAL; BG TOTAL HEMOGLOBIN 8.2 g/dL (12.0-18.0); BG VENT MODE VENT - CPAP
[2020-04-18] MEDS: CEFAZOLIN 1000MG PREMIX 50 ML IV SCH (14:40)
[2020-04-18] MEDS ORDERED: FUROSEMIDE 20MG/2ML VIAL IVP NR (16:00)
[2020-04-18 16:28] LABS: BG BASE EXCESS 2.2 mmol/L (-2.0-2.0); BG CARBOXYHEMOGLOBIN 0.3 % (0.5-1.5); BG DEOXYHEMOGLOBIN 8.8 % (0.0-5.0); BG FRACTION INSPIRED OXYGEN 40; BG HCO3 ACT 27.6 mmol/L (22.0-26.0); BG METHEMOGLOBIN 0.1 % (0.0-1.5); BG OXYGEN SATURATION 91.2 % (92.0-98.5); BG OXYHEMOGLOBIN 90.8 % (94.0-97.0); BG PCO2 47.2 mmHg (35.0-45.0); BG PH 7.385 (7.350-7.450); BG PO2 67.3 mmHg (75.0-100.0); BG SAMPLE SITE RIGHT RADIAL; BG TIDAL VOLUME(mL) 450 mL; BG VENT MODE VENT - A/C; BG VENT RATE 14 set
[2020-04-18] MEDS ORDERED: LORAZEPAM 2MG/ML CPJ IV PRN (16:45)
[2020-04-18] MEDS: MORPHINE SULFATE 2 MG/ML CPJ (NOT FOR IM USE) IV PRN (17:13)
[2020-04-19] VITALS (35 sets, daily range): BP systolic 96–151; BP diastolic 49–87
[2020-04-19] MEDS: CEFAZOLIN 1000MG PREMIX 50 ML IV SCH ×2 (00:47→12:54)
[2020-04-19] MEDS: BLOOD SUGAR DIAGNOSTIC STRIP TEST SCH ×4 (00:56→17:20)
[2020-04-19] MEDS: INSULIN LISPRO 100 UNITS/ML SUBCUT SCH ×4 (01:00→17:38)
[2020-04-19] MEDS: IPRATROPIUM/ALBUTEROL 0.5-3(2.5)MG/3ML NEB HHN SCH ×4 (02:23→20:49)
[2020-04-19 05:39] LABS: CHLORIDE 103 mEq/L (98-107)
[2020-04-19 05:49] LABS: PHOSPHORUS 1.8 mg/dL (2.5-4.9)
[2020-04-19 06:30] LABS: BASOPHILS % 0.4 % (0.0-2.0); EOSINOPHILS % 1.5 % (0.0-5.0); HEMATOCRIT. 24.4 % (36.0-48.0); HEMOGLOBIN. 7.9 g/dL (12.0-16.0); LYMPHOCYTES % 17.9 % (20.0-50.0); MEAN CORPUSCULAR HEMOGLOBIN 26.3 pg (28.0-32.0); MEAN CORPUSCULAR VOLUME 81.1 fL (81.0-99.0); MEAN PLATELET VOLUME 10.5 fl (7.4-10.4); MONOCYTES % 11.3 % (2.0-8.0); NEUTROPHILS % 68.9 % (40.0-76.0); PLATELET 231 x1000/uL (130-400); RED BLOOD CELL COUNT 3.01 mill/uL (4.2-5.4); RED CELL DISTRIBUTION WIDTH 15.5 % (11.6-14.6)
[2020-04-19] MEDS: LACTOBACILLUS GG CAPSULE PO SCH (08:26)
[2020-04-19] MEDS: ENOXAPARIN 40MG/0.4ML SYR SUBCUT SCH (08:27)
[2020-04-19] MEDS: PANTOPRAZOLE SODIUM 40 MG/VIAL IV SCH (08:27)
[2020-04-19 08:42] LABS: BG BASE EXCESS 11.4 mmol/L (-2.0-2.0); BG CARBOXYHEMOGLOBIN 0.3 % (0.5-1.5); BG DEOXYHEMOGLOBIN 1.3 % (0.0-5.0); BG FRACTION INSPIRED OXYGEN 40; BG HCO3 ACT 34.5 mmol/L (22.0-26.0); BG METHEMOGLOBIN 0.3 % (0.0-1.5); BG OXYGEN SATURATION 98.7 % (92.0-98.5); BG OXYHEMOGLOBIN 98.1 % (94.0-97.0); BG PCO2 39.2 mmHg (35.0-45.0); BG PH 7.563 (7.350-7.450); BG PO2 144.2 mmHg (75.0-100.0); BG SAMPLE SITE RIGHT RADIAL; BG TIDAL VOLUME(mL) 450 mL; BG TOTAL HEMOGLOBIN 7.6 g/dL (12.0-18.0); BG VENT MODE VENT - A/C; BG VENT RATE 14 set
[2020-04-19] MEDS ORDERED: POTASSIUM PHOS,M-BASIC-D-BASIC 20 MMOL in DEXT 5% WATER 243.3333 ML IV NR (09:30)
[2020-04-20] VITALS (29 sets, daily range): BP systolic 83–148; BP diastolic 49–85
[2020-04-20] MEDS: BLOOD SUGAR DIAGNOSTIC STRIP TEST SCH ×4 (00:01→17:34)
[2020-04-20] MEDS: INSULIN LISPRO 100 UNITS/ML SUBCUT SCH ×4 (00:10→17:40)
[2020-04-20 07:25] LABS: HEMATOCRIT. 23.2 % (36.0-48.0); HEMOGLOBIN. 7.7 g/dL (12.0-16.0); MEAN CORPUSCULAR HEMOGLOBIN 26.8 pg (28.0-32.0); MEAN CORPUSCULAR VOLUME 80.5 fL (81.0-99.0); PLATELET 246 x1000/uL (130-400); RED BLOOD CELL COUNT 2.88 mill/uL (4.2-5.4); RED CELL DISTRIBUTION WIDTH 15.4 % (11.6-14.6)
[2020-04-20 07:31] LABS: CHLORIDE 105 mEq/L (98-107)
[2020-04-20 07:37] LABS: PHOSPHORUS 3.7 mg/dL (2.5-4.9)
[2020-04-20] MEDS: PANTOPRAZOLE SODIUM 40 MG/VIAL IV SCH (08:25)
[2020-04-20] MEDS: LACTOBACILLUS GG CAPSULE PO SCH (08:25)
[2020-04-20] MEDS: ENOXAPARIN 40MG/0.4ML SYR SUBCUT SCH (08:25)
[2020-04-20] MEDS: IPRATROPIUM/ALBUTEROL 0.5-3(2.5)MG/3ML NEB HHN SCH ×3 (08:52→20:42)
[2020-04-20 09:06] LABS: BG BASE EXCESS 6.3 mmol/L (-2.0-2.0); BG CARBOXYHEMOGLOBIN 0.3 % (0.5-1.5); BG DEOXYHEMOGLOBIN 1.3 % (0.0-5.0); BG FRACTION INSPIRED OXYGEN 40; BG HCO3 ACT 30.2 mmol/L (22.0-26.0); BG METHEMOGLOBIN 0.3 % (0.0-1.5); BG OXYGEN SATURATION 98.7 % (92.0-98.5); BG OXYHEMOGLOBIN 98.1 % (94.0-97.0); BG PCO2 40.5 mmHg (35.0-45.0); BG PO2 144.7 mmHg (75.0-100.0); BG PRESSURE SUPPORT 12; BG SAMPLE SITE RIGHT RADIAL; BG TIDAL VOLUME(mL) 500 mL; BG TOTAL HEMOGLOBIN 7.7 g/dL (12.0-18.0); BG VENT MODE VENT - SIMV; BG VENT RATE 12 set
[2020-04-20 11:13] LABS: PLATELET ESTIMATE NORMAL
[2020-04-20] MEDS ORDERED: ALBUMIN HUMAN 25GM/100ML (25%) IV ONE (19:00)
[2020-04-21] VITALS (56 sets, daily range): BP systolic 103–157; BP diastolic 57–93
[2020-04-21] MEDS: BLOOD SUGAR DIAGNOSTIC STRIP TEST SCH ×5 (00:03→23:40)
[2020-04-21] MEDS: INSULIN LISPRO 100 UNITS/ML SUBCUT SCH ×5 (00:03→23:43)
[2020-04-21] MEDS: IPRATROPIUM/ALBUTEROL 0.5-3(2.5)MG/3ML NEB HHN SCH ×4 (03:02→20:23)
[2020-04-21 06:25] LABS: BASOPHILS % 0.3 % (0.0-2.0); EOSINOPHILS % 1.9 % (0.0-5.0); HEMATOCRIT. 22.7 % (36.0-48.0); HEMOGLOBIN. 7.6 g/dL (12.0-16.0); LYMPHOCYTES % 16.5 % (20.0-50.0); MEAN CORPUSCULAR HEMOGLOBIN 26.9 pg (28.0-32.0); MEAN CORPUSCULAR VOLUME 80.8 fL (81.0-99.0); MEAN PLATELET VOLUME 9.8 fl (7.4-10.4); MONOCYTES % 7.4 % (2.0-8.0); NEUTROPHILS % 73.9 % (40.0-76.0); PLATELET 245 x1000/uL (130-400); RED BLOOD CELL COUNT 2.81 mill/uL (4.2-5.4); RED CELL DISTRIBUTION WIDTH 15.4 % (11.6-14.6)
[2020-04-21 07:27] LABS: CHLORIDE 104 mEq/L (98-107)
[2020-04-21] MEDS: LACTOBACILLUS GG CAPSULE PO SCH (08:43)
[2020-04-21] MEDS: PANTOPRAZOLE SODIUM 40 MG/VIAL IV SCH (08:43)
[2020-04-22] VITALS (34 sets, daily range): BP systolic 109–159; BP diastolic 56–94
[2020-04-22] MEDS: IPRATROPIUM/ALBUTEROL 0.5-3(2.5)MG/3ML NEB HHN SCH ×4 (02:28→20:54)
[2020-04-22] MEDS: BLOOD SUGAR DIAGNOSTIC STRIP TEST SCH ×3 (05:52→17:32)
[2020-04-22] MEDS: INSULIN LISPRO 100 UNITS/ML SUBCUT SCH ×3 (05:54→17:39)
[2020-04-22] MEDS: PANTOPRAZOLE SODIUM 40 MG/VIAL IV SCH (08:17)
[2020-04-22] MEDS: LACTOBACILLUS GG CAPSULE PO SCH (08:17)
[2020-04-22] MEDS ORDERED: ROCURONIUM BROMIDE 10MG/ML VIAL 5ML IV ONE ×2 (09:45→10:12)
[2020-04-22] MEDS ORDERED: EPHEDRINE SULFATE 50MG/ML VIAL ONE (09:46)
[2020-04-22] MEDS ORDERED: MIDAZOLAM HCL 2 MG/2 ML VIAL ONE (10:05)
[2020-04-22] MEDS ORDERED: SODIUM CHLORIDE 0.9% 10ML VIAL ONE (10:09)
[2020-04-22] MEDS ORDERED: CEFAZOLIN SODIUM 1000MG/VIAL ONE (10:09)
[2020-04-22] MEDS: CLONIDINE 0.1MG TABLET PO PRN (12:35)
[2020-04-22 15:23] LABS: BASOPHILS % 0.3 % (0.0-2.0); EOSINOPHILS % 1.9 % (0.0-5.0); HEMATOCRIT. 26.6 % (36.0-48.0); HEMOGLOBIN. 8.9 g/dL (12.0-16.0); LYMPHOCYTES % 17.3 % (20.0-50.0); MEAN CORPUSCULAR HEMOGLOBIN 27.2 pg (28.0-32.0); MEAN CORPUSCULAR VOLUME 81.2 fL (81.0-99.0); MEAN PLATELET VOLUME 9.5 fl (7.4-10.4); MONOCYTES % 9.4 % (2.0-8.0); NEUTROPHILS % 71.1 % (40.0-76.0); PLATELET 248 x1000/uL (130-400); RED BLOOD CELL COUNT 3.28 mill/uL (4.2-5.4); RED CELL DISTRIBUTION WIDTH 16.3 % (11.6-14.6)
[2020-04-22 15:30] LABS: CHLORIDE 106 mEq/L (98-107)
[2020-04-22] MEDS: MORPHINE SULFATE 2 MG/ML CPJ (NOT FOR IM USE) IV PRN (21:33)
[2020-04-23] VITALS (31 sets, daily range): BP systolic 98–141; BP diastolic 43–75
[2020-04-23] MEDS: BLOOD SUGAR DIAGNOSTIC STRIP TEST SCH ×5 (00:30→23:39)
[2020-04-23] MEDS: INSULIN LISPRO 100 UNITS/ML SUBCUT SCH ×5 (00:39→23:39)
[2020-04-23] MEDS: IPRATROPIUM/ALBUTEROL 0.5-3(2.5)MG/3ML NEB HHN SCH ×4 (02:08→20:53)
[2020-04-23] MEDS: MORPHINE SULFATE 2 MG/ML CPJ (NOT FOR IM USE) IV PRN (04:13)
[2020-04-23 06:23] LABS: BASOPHILS % 0.2 % (0.0-2.0); HEMATOCRIT. 24.7 % (36.0-48.0); HEMOGLOBIN. 8.3 g/dL (12.0-16.0); LYMPHOCYTES % 9.2 % (20.0-50.0); MEAN CORPUSCULAR HEMOGLOBIN 27.4 pg (28.0-32.0); MEAN CORPUSCULAR VOLUME 81.8 fL (81.0-99.0); MEAN PLATELET VOLUME 9.6 fl (7.4-10.4); MONOCYTES % 8.4 % (2.0-8.0); NEUTROPHILS % 81.2 % (40.0-76.0); PLATELET 240 x1000/uL (130-400); RED BLOOD CELL COUNT 3.01 mill/uL (4.2-5.4); RED CELL DISTRIBUTION WIDTH 16.3 % (11.6-14.6)
[2020-04-23 06:53] LABS: CHLORIDE 105 mEq/L (98-107)
[2020-04-23] MEDS: PANTOPRAZOLE SODIUM 40 MG/VIAL IV SCH (08:43)
[2020-04-23] MEDS: LACTOBACILLUS GG CAPSULE PO SCH (09:04)
[2020-04-24] VITALS (12 sets, daily range): BP systolic 118–141; BP diastolic 54–80
[2020-04-24] MEDS: IPRATROPIUM/ALBUTEROL 0.5-3(2.5)MG/3ML NEB HHN SCH ×4 (02:15→20:16)
[2020-04-24] MEDS: BLOOD SUGAR DIAGNOSTIC STRIP TEST SCH ×4 (05:31→23:59)
[2020-04-24] MEDS: INSULIN LISPRO 100 UNITS/ML SUBCUT SCH ×4 (05:31→23:59)
[2020-04-24] MEDS: LACTOBACILLUS GG CAPSULE PO SCH (08:49)
[2020-04-24] MEDS: PANTOPRAZOLE SODIUM 40 MG/VIAL IV SCH (08:49)
[2020-04-24] MEDS: ACETAMINOPHEN 650MG/20.3ML UDC GT PRN (23:41)
[2020-04-25] VITALS (11 sets, daily range): BP systolic 124–161; BP diastolic 68–84
[2020-04-25] MEDS: IPRATROPIUM/ALBUTEROL 0.5-3(2.5)MG/3ML NEB HHN SCH ×5 (02:02→20:58)
[2020-04-25 05:56] LABS: CHLORIDE 104 mEq/L (98-107)
[2020-04-25] MEDS: INSULIN LISPRO 100 UNITS/ML SUBCUT SCH ×4 (06:03→23:20)
[2020-04-25] MEDS: BLOOD SUGAR DIAGNOSTIC STRIP TEST SCH ×4 (06:03→23:17)
[2020-04-25 06:07] LABS: BASOPHILS % 0.3 % (0.0-2.0); EOSINOPHILS % 1.9 % (0.0-5.0); HEMATOCRIT. 22.9 % (36.0-48.0); HEMOGLOBIN. 7.6 g/dL (12.0-16.0); LYMPHOCYTES % 11.1 % (20.0-50.0); MEAN CORPUSCULAR VOLUME 81.9 fL (81.0-99.0); MEAN PLATELET VOLUME 9.4 fl (7.4-10.4); NEUTROPHILS % 78.7 % (40.0-76.0); PLATELET 219 x1000/uL (130-400); RED CELL DISTRIBUTION WIDTH 16.5 % (11.6-14.6)
[2020-04-25] MEDS: LACTOBACILLUS GG CAPSULE PO SCH (08:54)
[2020-04-25] MEDS: PANTOPRAZOLE SODIUM 40 MG/VIAL IV SCH (08:54)
[2020-04-26] VITALS (12 sets, daily range): BP systolic 123–159; BP diastolic 62–98
[2020-04-26] MEDS: IPRATROPIUM/ALBUTEROL 0.5-3(2.5)MG/3ML NEB HHN SCH ×4 (02:58→20:37)
[2020-04-26] MEDS: BLOOD SUGAR DIAGNOSTIC STRIP TEST SCH ×4 (05:11→23:06)
[2020-04-26] MEDS: INSULIN LISPRO 100 UNITS/ML SUBCUT SCH ×4 (05:12→23:06)
[2020-04-26 06:21] LABS: CHLORIDE 101 mEq/L (98-107)
[2020-04-26 06:28] LABS: BASOPHILS % 0.4 % (0.0-2.0); EOSINOPHILS % 2.3 % (0.0-5.0); HEMATOCRIT. 25.4 % (36.0-48.0); HEMOGLOBIN. 8.5 g/dL (12.0-16.0); LYMPHOCYTES % 15.7 % (20.0-50.0); MEAN CORPUSCULAR HEMOGLOBIN 27.1 pg (28.0-32.0); MEAN CORPUSCULAR VOLUME 81.4 fL (81.0-99.0); MEAN PLATELET VOLUME 9.5 fl (7.4-10.4); NEUTROPHILS % 72.6 % (40.0-76.0); PLATELET 214 x1000/uL (130-400); RED BLOOD CELL COUNT 3.12 mill/uL (4.2-5.4); RED CELL DISTRIBUTION WIDTH 16.3 % (11.6-14.6)
[2020-04-26] MEDS: LACTOBACILLUS GG CAPSULE PO SCH (08:42)
[2020-04-26] MEDS: PANTOPRAZOLE SODIUM 40 MG/VIAL IV SCH (08:42)
[2020-04-26] MEDS: INSULIN GLARGINE UD 100 UNITS/ML SYR SUBCUT SCH (23:07)
[2020-04-27] VITALS (14 sets, daily range): BP systolic 138–171; BP diastolic 81–100
[2020-04-27] MEDS: IPRATROPIUM/ALBUTEROL 0.5-3(2.5)MG/3ML NEB HHN SCH ×4 (04:39→20:37)
[2020-04-27] MEDS: BLOOD SUGAR DIAGNOSTIC STRIP TEST SCH ×3 (05:27→17:07)
[2020-04-27] MEDS: INSULIN LISPRO 100 UNITS/ML SUBCUT SCH ×3 (05:28→17:08)
[2020-04-27] MEDS: LACTOBACILLUS GG CAPSULE PO SCH (08:27)
[2020-04-27] MEDS: PANTOPRAZOLE SODIUM 40 MG/VIAL IV SCH (08:27)
[2020-04-27] MEDS: INSULIN GLARGINE UD 100 UNITS/ML SYR SUBCUT SCH (22:51)
[2020-04-28] VITALS (12 sets, daily range): BP systolic 111–155; BP diastolic 56–82
[2020-04-28] MEDS: INSULIN LISPRO 100 UNITS/ML SUBCUT SCH ×5 (00:57→23:52)
[2020-04-28] MEDS: IPRATROPIUM/ALBUTEROL 0.5-3(2.5)MG/3ML NEB HHN SCH ×4 (02:05→21:40)
[2020-04-28] MEDS: BLOOD SUGAR DIAGNOSTIC STRIP TEST SCH ×5 (06:00→23:31)
[2020-04-28 06:31] LABS: BASOPHILS % 0.6 % (0.0-2.0); CHLORIDE 102 mEq/L (98-107); EOSINOPHILS % 2.9 % (0.0-5.0); HEMATOCRIT. 28.6 % (36.0-48.0); HEMOGLOBIN. 9.4 g/dL (12.0-16.0); LYMPHOCYTES % 11.8 % (20.0-50.0); MEAN CORPUSCULAR HEMOGLOBIN 26.6 pg (28.0-32.0); MEAN CORPUSCULAR VOLUME 80.6 fL (81.0-99.0); MEAN PLATELET VOLUME 9.4 fl (7.4-10.4); MONOCYTES % 9.1 % (2.0-8.0); NEUTROPHILS % 75.6 % (40.0-76.0); PLATELET 216 x1000/uL (130-400); RED BLOOD CELL COUNT 3.54 mill/uL (4.2-5.4); RED CELL DISTRIBUTION WIDTH 15.8 % (11.6-14.6)
[2020-04-28 06:50] LABS: PHOSPHORUS 3.2 mg/dL (2.5-4.9)
[2020-04-28] MEDS: LACTOBACILLUS GG CAPSULE PO SCH (08:13)
[2020-04-28] MEDS: PANTOPRAZOLE SODIUM 40 MG/VIAL IV SCH (08:13)
[2020-04-28 13:02] LABS: BG BASE EXCESS 7.8 mmol/L (-2.0-2.0); BG CARBOXYHEMOGLOBIN 0.2 % (0.5-1.5); BG DEOXYHEMOGLOBIN 1.8 % (0.0-5.0); BG FRACTION INSPIRED OXYGEN 35; BG HCO3 ACT 32.1 mmol/L (22.0-26.0); BG METHEMOGLOBIN 0.5 % (0.0-1.5); BG OXYGEN SATURATION 98.2 % (92.0-98.5); BG OXYHEMOGLOBIN 97.5 % (94.0-97.0); BG PCO2 44.1 mmHg (35.0-45.0); BG PRESSURE SUPPORT 10; BG SAMPLE SITE RIGHT RADIAL; BG TOTAL HEMOGLOBIN 9.1 g/dL (12.0-18.0); BG VENT MODE VENT - CPAP
[2020-04-28] MEDS: INSULIN GLARGINE UD 100 UNITS/ML SYR SUBCUT SCH (21:55)
[2020-04-29] VITALS (12 sets, daily range): BP systolic 118–138; BP diastolic 64–72
[2020-04-29] MEDS: IPRATROPIUM/ALBUTEROL 0.5-3(2.5)MG/3ML NEB HHN SCH ×4 (01:41→20:43)
[2020-04-29] MEDS: BLOOD SUGAR DIAGNOSTIC STRIP TEST SCH ×3 (05:53→18:00)
[2020-04-29] MEDS: INSULIN LISPRO 100 UNITS/ML SUBCUT SCH ×3 (06:00→18:59)
[2020-04-29] MEDS: PANTOPRAZOLE SODIUM 40 MG/VIAL IV SCH (08:25)
[2020-04-29] MEDS: LACTOBACILLUS GG CAPSULE PO SCH (08:25)
[2020-04-29] MEDS: INSULIN GLARGINE UD 100 UNITS/ML SYR SUBCUT SCH (21:46)
[2020-04-30] VITALS (12 sets, daily range): BP systolic 115–146; BP diastolic 60–92
[2020-04-30] MEDS: IPRATROPIUM/ALBUTEROL 0.5-3(2.5)MG/3ML NEB HHN SCH ×4 (02:28→20:20)
[2020-04-30] MEDS: BLOOD SUGAR DIAGNOSTIC STRIP TEST SCH ×5 (06:11→23:08)
[2020-04-30] MEDS: INSULIN LISPRO 100 UNITS/ML SUBCUT SCH ×5 (06:11→23:07)
[2020-04-30 06:40] LABS: BASOPHILS % 0.6 % (0.0-2.0); EOSINOPHILS % 4.6 % (0.0-5.0); HEMATOCRIT. 25.9 % (36.0-48.0); HEMOGLOBIN. 8.6 g/dL (12.0-16.0); LYMPHOCYTES % 18.6 % (20.0-50.0); MEAN CORPUSCULAR HEMOGLOBIN 26.9 pg (28.0-32.0); MEAN PLATELET VOLUME 10.1 fl (7.4-10.4); NEUTROPHILS % 66.2 % (40.0-76.0); PLATELET 177 x1000/uL (130-400); RED BLOOD CELL COUNT 3.19 mill/uL (4.2-5.4); RED CELL DISTRIBUTION WIDTH 16.5 % (11.6-14.6)
[2020-04-30 06:49] LABS: CHLORIDE 102 mEq/L (98-107)
[2020-04-30] MEDS: PANTOPRAZOLE SODIUM 40 MG/VIAL IV SCH (08:28)
[2020-04-30] MEDS: LACTOBACILLUS GG CAPSULE PO SCH (08:28)
[2020-04-30] MEDS: INSULIN GLARGINE UD 100 UNITS/ML SYR SUBCUT SCH (23:07)
[2020-05-01] VITALS (13 sets, daily range): BP systolic 129–199; BP diastolic 60–96
[2020-05-01] MEDS: IPRATROPIUM/ALBUTEROL 0.5-3(2.5)MG/3ML NEB HHN SCH ×4 (02:28→21:05)
[2020-05-01] MEDS: BLOOD SUGAR DIAGNOSTIC STRIP TEST SCH ×3 (05:30→17:16)
[2020-05-01] MEDS: INSULIN LISPRO 100 UNITS/ML SUBCUT SCH ×4 (06:07→23:51)
[2020-05-01] MEDS: PANTOPRAZOLE SODIUM 40 MG/VIAL IV SCH (08:37)
[2020-05-01] MEDS: LACTOBACILLUS GG CAPSULE PO SCH (08:37)
[2020-05-01] MEDS: CLONIDINE 0.1MG TABLET PO PRN (17:34)
[2020-05-01] MEDS: METOPROLOL TARTRATE 25MG TABLET PO SCH (17:50)
[2020-05-01] MEDS: INSULIN GLARGINE UD 100 UNITS/ML SYR SUBCUT SCH (23:52)
[2020-05-02] VITALS: BP 146/73
[2020-05-02 02:00] VITALS: BP 113/56
[2020-05-02] MEDS: IPRATROPIUM/ALBUTEROL 0.5-3(2.5)MG/3ML NEB HHN SCH (02:04)
[2020-05-02 04:00] VITALS: BP 120/60
[2020-05-02] MEDS: INSULIN LISPRO 100 UNITS/ML SUBCUT SCH (05:55)
[2020-05-02] MEDS: BLOOD SUGAR DIAGNOSTIC STRIP TEST SCH ×2 (05:55)
[2020-05-02 06:00] VITALS: BP 129/58
[2020-05-02 06:09] LABS: CHLORIDE 102 mEq/L (98-107)
[2020-05-02 06:36] LABS: BASOPHILS % 0.4 % (0.0-2.0); EOSINOPHILS % 2.7 % (0.0-5.0); HEMATOCRIT. 25.2 % (36.0-48.0); HEMOGLOBIN. 8.4 g/dL (12.0-16.0); LYMPHOCYTES % 12.6 % (20.0-50.0); MEAN CORPUSCULAR HEMOGLOBIN 26.8 pg (28.0-32.0); MEAN CORPUSCULAR VOLUME 80.4 fL (81.0-99.0); MEAN PLATELET VOLUME 10.3 fl (7.4-10.4); MONOCYTES % 9.5 % (2.0-8.0); NEUTROPHILS % 74.8 % (40.0-76.0); PLATELET 161 x1000/uL (130-400); RED BLOOD CELL COUNT 3.13 mill/uL (4.2-5.4); RED CELL DISTRIBUTION WIDTH 16.1 % (11.6-14.6)
[2020-05-02] MEDS: METOPROLOL TARTRATE 25MG TABLET PO SCH (08:09)
[2020-05-02] MEDS: LACTOBACILLUS GG CAPSULE PO SCH (08:09)
[2020-05-02] MEDS: PANTOPRAZOLE SODIUM 40 MG/VIAL IV SCH (08:09)
[2020-05-02] MEDS: IPRATROPIUM/ALBUTEROL 0.5-3(2.5)MG/3ML NEB HHN PRN (08:28)
[2020-05-02] MEDS ORDERED: NOREPINEPHRINE 4MG/250ML PMX 250 ML IV ONE (09:00)
[2020-05-02] MEDS ORDERED: EPINEPHRINE 1 MG in SODIUM CHLORIDE 0.9% 250 ML IV ONE (09:15)
[2020-05-02] MEDS ORDERED: EPINEPHRINE 0.1MG/ML (1:10,000) 10ML SYR ONE (09:34)
== END 2020-05-02 09:24 | disposition expired | DRG 4 ==
LOC: ER 22:16 → MICUSO 04-11 01:05 → 5EST 04-11 11:47
PROVIDERS: ADMIT Internal Medicine; ATTEND Internal Medicine
PROC: 5A1955Z Respiratory Ventilation, Greater than 96 Consecutive Hours (ICD-10-PCS; 2020-04-11)
PROC: 05HY33Z Insertion of Infusion Device into Upper Vein, Percutaneous Approach (ICD-10-PCS; 2020-04-11)
PROC: B54MZZA Ultrasonography of Right Upper Extremity Veins, Guidance (ICD-10-PCS; 2020-04-11)
PROC: 0BH17EZ Insertion of Endotracheal Airway into Trachea, Via Natural or Artificial Opening (ICD-10-PCS; 2020-04-11)
PROC: 0BH17EZ Insertion of Endotracheal Airway into Trachea, Via Natural or Artificial Opening (ICD-10-PCS; 2020-04-18)
PROC: 0B110F4 Bypass Trachea to Cutaneous with Tracheostomy Device, Open Approach (ICD-10-PCS; principal; 2020-04-22)
PROC: 0GBJ0ZZ Excision of Thyroid Gland Isthmus, Open Approach (ICD-10-PCS; 2020-04-22)
DX: A41.51 Sepsis due to Escherichia coli [E. coli] (principal); J69.0 Pneumonitis due to inhalation of food and vomit; R65.21 Severe sepsis with septic shock; G93.41 Metabolic encephalopathy; E87.4 Mixed disorder of acid-base balance; N17.9 Acute kidney failure, unspecified; J96.22 Acute and chronic respiratory failure with hypercapnia; R13.10 Dysphagia, unspecified; E44.1 Mild protein-calorie malnutrition; D69.6 Thrombocytopenia, unspecified; E87.0 Hyperosmolality and hypernatremia; I50.22 Chronic systolic (congestive) heart failure; I11.0 Hypertensive heart disease with heart failure; N39.0 Urinary tract infection, site not specified; E11.9 Type 2 diabetes mellitus without complications; D64.9 Anemia, unspecified; E83.39 Other disorders of phosphorus metabolism; E86.0 Dehydration; E87.1 Hypo-osmolality and hyponatremia; F01.50 Vascular dementia, unspecified severity, without behavioral disturbance, psychotic disturbance, mood disturbance, and anxiety; Z20.828 Contact with and (suspected) exposure to other viral communicable diseases; Z78.1 Physical restraint status; Z82.49 Family history of ischemic heart disease and other diseases of the circulatory system; Z83.3 Family history of diabetes mellitus; Z93.1 Gastrostomy status; Z99.11 Dependence on respirator [ventilator] status; Z86.73 Personal history of transient ischemic attack (TIA), and cerebral infarction without residual deficits
CPT/HCPCS: 36415; 36600; 71045; 74018; 76937; 80048; 80053; 80061; 81003; 82270; 82375; 82550; 82553; 82607; 82728; 82746; 82805; 82962; 83036; 83540; 83550; 83605; 83735; 84100; 84145; 84443; 84484; 85025; 86850; 86870; 86900; 86920; 87070; 87077; 87186; 93005; 93970; 94003; 94640; 99291; C1725; C9113; J0330; J0690; J0692; J0696; J1200; J1650; J1815; J1940; J2060; J2250; J2270; J2704; J3480; J3490; J7030; J7050; J7060; J7070; P9016; U0003-CS